=== PATIENT | female | born 1930 | race Caucasian/White ===

== ENCOUNTER 2018-01-23 22:42 | Inpatient (IN) ==
[2018-01-23] MEDS ORDERED: Furosemide 40 MG/4 ML VIAL IVP ONE (23:05)
--- NOTE | 2018-01-23 23:22 | Emergency Department Note ---
Disposition Clinical Impression: Atrial fibrillation with RVR Congestive heart failure Qualifiers: Heart failure type: unspecified Heart failure chronicity: acute on chronic Qualified Code(s): I50.9 - Heart failure, unspecified Disposition: Admitted As Inpatient Condition: Fair Instructions: Heart Failure (ED), Atrial Fibrillation (ED) Referrals: NONE,PCP [Primary Care Provider] - Forms: ED Satisfaction Letter Time of Disposition: 01:40 SOB HPI - General Chief Complaint: ED Shortness of Breath/Dyspnea Stated Complaint: SOB, Leg Cramping, Fluid Retention Time Seen by Provider: 01/23/18 22:51 Source: patient Mode of arrival: private vehicle Limitations: no limitations Nursing Notes Reviewed: Yes Vital Signs Reviewed: Yes - History of Present Illness On his pleasant 87-year-old female. She presents to the emergency room with a chief complaint of increased shortness of breath abdominal and bilateral lower leg swelling starting this morning. She states that in mid November she was seen at [facility] and diagnosed with congestive heart failure and A. fib which really diagnoses for her at the time. She states that she was admitted for several days and released her rehabilitation facility released from the rehabilitation facility on January 21. She is staying locally with family to help her recovery. 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 She is not on dialysis. She denies chest pain states that she does not wear oxygen at home. She denies any missed medication. She is currently taking Lasix 40 mg by mouth daily. She denies fevers, falls, trauma, hits the head, changes in bladder or bowels or any other concerns at this time. Pt Subjective Complaint: shortness of breath Onset (ago): day(s) Context: medication noncompliance Severity: moderate Consistency/Duration: gradually worsening Improves with: nothing Known history of: other (a. fib / CHF) Treatment prior to arrival: nitroglycerin (daily chest patch) - Related Data Home Medications Medication Instructions Recorded Confirmed Apixaban [Eliquis] 5 mg PO BID 01/24/18 01/24/18 Diltiazem HCl [Diltiazem 24Hr Cd] 240 mg PO DAILY 01/24/18 01/24/18 FLUoxetine HCl [Sarafem] 20 mg PO BID 01/24/18 01/24/18 Furosemide [Lasix] 40 mg PO DAILY 01/24/18 01/24/18 Gabapentin [Neurontin] 300 mg PO HS 01/24/18 01/24/18 Iron Polysaccharide Complex 150 mg PO 01/24/18 [Ferric X-150] Multivit-Min/FA/Lycopen/Lutein 1 each PO DAILY 01/24/18 01/24/18 [Centrum Silver Tablet] Nitroglycerin [Nitro-Dur] 1 each TD 01/24/18 01/24/18 Pantoprazole Sodium [Protonix] 40 mg PO DAILY 01/24/18 01/24/18 Potassium Bitartrate [Potassium 01/24/18 Acid Tartrate] Potassium Chloride [Klor-Con 20 meq PO BID 01/24/18 01/24/18 Sprinkle] Spironolactone [Aldactone] 12.5 mg PO DAILY 01/24/18 01/24/18 Allergies Allergy/AdvReac Type Severity Reaction Status Date / Time No Known Allergies Allergy Verified 01/23/18 22:43 All systems ED: reviewed and negative except as stated. Review of Systems: As Per HPI Constitutional: Reports: as per HPI Eyes: Reports: as per HPI Cardiovascular: Reports: as per HPI, orthopnea. Denies: chest pain Respiratory: Reports: dyspnea Gastrointestinal: Reports: abdominal pain (swelling) Integumentary: Denies: rash, abrasion, pruritus Psychiatric: Reports: as per HPI Past Medical History - Past Medical History Medical history: Reports: arthritis, atrial fibrillation, CHF, renal disease Psychiatric history: Reports: anxiety, depression - Social History Smoking Status: Never smoker Alcohol use: Reports: none Drug use: Reports: none Physical Exam - General Limitations: no limitations General appearance: alert - Head Head exam: atraumatic - Eye Eye exam: Present: PERRL, EOMI - Chest Chest inspection: Present: symmetric chest wall rise - Respiratory Respiratory exam: Present: respiratory distress - Cardiovascular Cardiovascular exam: Present: tachycardia, irregular rhythm - Abdominal Exam Abdominal exam: Present: distention - Extremities Exam Extremities exam: Present: tenderness, pedal edema, calf tenderness (bilateral swelling) Course Course Narrative: Patient was started on 40 mg IVP Lasix. She was also given a bolus of diltiazem and started on a diltiazem drip. Patient's rate did bounce around in the ED however primarily was in the 1 teens for most of her stay following the diltiazem drip initiation. I feel the patient needs admission for a reevaluation of medication. Requested records from [place] were patient was admitted. Family at bedside. Vital Signs Temperature 97.8 F 01/23/18 22:43 Pulse Rate 137 01/23/18 22:43 Respiratory Rate 26 01/23/18 22:43 Blood Pressure 139/74 01/23/18 22:43 O2 Sat by Pulse Oximetry 94 01/23/18 22:43 Temperature 97.8 F 01/23/18 22:43 Pulse Rate 125 01/24/18 01:22 Respiratory Rate 20 01/24/18 01:22 Blood Pressure 107/74 01/24/18 01:22 O2 Sat by Pulse Oximetry 95 01/24/18 01:22 Oxygen Delivery Oxygen Delivery Nasal Cannula Shortness of Breath/Dyspnea - MDM Narrative Medical decision making narrative: I suspect troponin is due to cardiac strain from A. fib and congestive heart failure as opposed to a ACS pathology. This patient's first visit at [facility] and we do not have old records for comparison. - Lab Data Lab results reviewed: Yes I reviewed the patient's lab results. Result diagrams: 01/23/18 23:24 01/23/18 23:24 Lab Results 01/23/18 01/23/18 01/23/18 Range/Units 23:24 23:24 23:24 WBC 8.8 (4.3-11.1) K/mcL RBC 2.99 L (3.82-4.97) M/mcL Hgb 7.8 L (11.5-15.4) g/dL Hct 24.6 L (35.3-44.9) % MCV 82.3 L (83.0-100.0) fL MCH 26.1 L (28.0-33.3) pg MCHC 31.7 (31.6-35.5) g/dL RDW 15.8 H (11.5-14.5) % Plt Count 225 (140-400) K/mcL MPV 10.6 (9.4-12.4) fL Immature Gran % 0.5 (0-4) % Seg Neutrophils % 77.8 % Lymphocytes % 7.2 % Monocytes % 14.1 % Eosinophils % 0.3 % Basophils % 0.1 % Neutrophils # 6.8 (1.6-8.9) K/mcL Lymphocytes # 0.6 (0.6-4.6) K/mcL Monocytes # 1.2 (0.0-1.3) K/mcL Eosinophils # 0.0 (0.0-0.6) K/mcL Basophils # 0.0 (0.0-0.2) K/mcL PT 23.3 H (9.4-12.1) Seconds INR 2.1 APTT 40.1 H (26.0-36.0) Seconds Sodium 136 (136-145) mEq/L Potassium 4.7 (3.5-5.1) mEq/L Chloride 104 (98-107) mEq/L Carbon Dioxide 21 L (23-29) mEq/L BUN 42 H (8-23) mg/dL Creatinine 2.18 H (0.60-1.20) mg/dL Est GFR ( Amer) 26 L (> 60) Est GFR (Non-Af Amer) 21 L (> 60) BUN/Creatinine Ratio 19 (6-26) Glucose 150 H (70-105) mg/dL Calculated Osmolality 295 (280-300) Lactic Acid (0.5-2.2) mmol/L Calcium 9.3 (8.6-10.3) mg/dL Total Bilirubin 0.6 (0.3-1.0) mg/dL Direct Bilirubin 0.1 (0.0-0.2) mg/dL Indirect Bilirubin 0.5 (0.0-1.2) mg/dL AST 15 (13-39) Units/L ALT 37 (7-52) Units/L Alkaline Phosphatase 76 (34-104) Units/L Troponin I 0.04 H* (< 0.04) ng/mL B-Natriuretic Peptide (Less than 100) pg/mL Serum Total Protein 6.6 (6.4-8.9) g/dL Albumin 3.8 (3.5-5.7) g/dL Globulin 2.8 (2.4-3.5) g/dL Albumin/Globulin Ratio 1.4 (1.1-2.2) Urine Color (Yellow) Urine Clarity (Clear) Urine pH (5.0-8.0) pH Units Ur Specific [place] (1.010-1.025) Urine Protein (Neg-Trace) mg/dL Urine Glucose (UA) (Normal) mg/dL Urine Ketones (Negative) mg/dL Urine Blood (Negative) Urine Nitrite (Negative) Urine Bilirubin (Negative) Urine Urobilinogen (Normal) mg/dL Ur Leukocyte Esterase (Negative) Urine Microscopic RBC (0-3) per hpf Urine Microscopic WBC (0-3) per hpf Ur Squamous Epith Cells (None-Few) per lpf Urine Bacteria (None-Few) per hpf Hyaline Casts (None-Few) per lpf Ur Culture Indicated? (NO) 01/23/18 01/23/18 01/23/18 Range/Units 23:24 23:24 23:40 WBC (4.3-11.1) K/mcL RBC (3.82-4.97) M/mcL Hgb (11.5-15.4) g/dL Hct (35.3-44.9) % MCV (83.0-100.0) fL MCH (28.0-33.3) pg MCHC (31.6-35.5) g/dL RDW (11.5-14.5) % Plt Count (140-400) K/mcL MPV (9.4-12.4) fL Immature Gran % (0-4) % Seg Neutrophils % % Lymphocytes % % Monocytes % % Eosinophils % % Basophils % % Neutrophils # (1.6-8.9) K/mcL Lymphocytes # (0.6-4.6) K/mcL Monocytes # (0.0-1.3) K/mcL Eosinophils # (0.0-0.6) K/mcL Basophils # (0.0-0.2) K/mcL PT (9.4-12.1) Seconds INR APTT (26.0-36.0) Seconds Sodium (136-145) mEq/L Potassium (3.5-5.1) mEq/L Chloride (98-107) mEq/L Carbon Dioxide (23-29) mEq/L BUN (8-23) mg/dL Creatinine (0.60-1.20) mg/dL Est GFR ( Amer) (> 60) Est GFR (Non-Af Amer) (> 60) BUN/Creatinine Ratio (6-26) Glucose (70-105) mg/dL Calculated Osmolality (280-300) Lactic Acid 0.8 (0.5-2.2) mmol/L Calcium (8.6-10.3) mg/dL Total Bilirubin (0.3-1.0) mg/dL Direct Bilirubin (0.0-0.2) mg/dL Indirect Bilirubin (0.0-1.2) mg/dL AST (13-39) Units/L ALT (7-52) Units/L Alkaline Phosphatase (34-104) Units/L Troponin I (< 0.04) ng/mL B-Natriuretic Peptide 184 H (Less than 100) pg/mL Serum Total Protein (6.4-8.9) g/dL Albumin (3.5-5.7) g/dL Globulin (2.4-3.5) g/dL Albumin/Globulin Ratio (1.1-2.2) Urine Color Yellow (Yellow) Urine Clarity Clear (Clear) Urine pH 5.5 (5.0-8.0) pH Units Ur Specific [place] 1.019 (1.010-1.025) Urine Protein Negative (Neg-Trace) mg/dL Urine Glucose (UA) Normal (Normal) mg/dL Urine Ketones Negative (Negative) mg/dL Urine Blood Negative (Negative) Urine Nitrite Negative (Negative) Urine Bilirubin Negative (Negative) Urine Urobilinogen Normal (Normal) mg/dL Ur Leukocyte Esterase Small H (Negative) Urine Microscopic RBC 3-5 H (0-3) per hpf Urine Microscopic WBC 0-3 (0-3) per hpf Ur Squamous Epith Cells Moderate H (None-Few) per lpf Urine Bacteria None Seen (None-Few) per hpf Hyaline Casts None Seen (None-Few) per lpf Ur Culture Indicated? YES A (NO) - EKG Data EKG results narrative: Ventricular rate of 152. A. fib with RVR. QT/QTc to 76/362. Rate: Reports: tachycardia Critical Care Time Critical Care Time: Yes (Critical care time administered for IV medications of ccb) Total Critical Care Time: 30 Attestation: Rectal care time for IV administration of calcium channel zeenat as well as monitoring patient's vital signs discussing care and disposition with family checking labs discussing care with other physicians including hospitalists and ED attending.
[2018-01-23 23:34] LABS: Basophils % 0.1 %; Eosinophils % 0.3 %; Hematocrit 24.6 % (35.3-44.9); Hemoglobin 7.8 g/dL (11.5-15.4); Immature Granulocytes % 0.5 % (0-4); Lymphocytes # 0.6 K/mcL (0.6-4.6); Lymphocytes % 7.2 %; Mean Corpuscular HGB Conc 31.7 g/dL (31.6-35.5); Mean Corpuscular Hemoglobin 26.1 pg (28.0-33.3); Mean Corpuscular Volume 82.3 fL (83.0-100.0); Mean Platelet Volume 10.6 fL (9.4-12.4); Monocytes # 1.2 K/mcL (0.0-1.3); Monocytes % 14.1 %; Neutrophils # 6.8 K/mcL (1.6-8.9); Platelet Count 225 K/mcL (140-400); Red Blood Count 2.99 M/mcL (3.82-4.97); Red Cell Distribution Width 15.8 % (11.5-14.5); Segmented Neutrophils % 77.8 %
[2018-01-23 23:42] LABS: INR 2.1; Prothrombin Time 23.3 Seconds (9.4-12.1)
[2018-01-23 23:45] LABS: Bilirubin,Urine Negative (Negative); Blood,Urine Negative (Negative); Clarity,Urine Clear (Clear); Color,Urine Yellow (Yellow); Glucose,Urine (UA) Normal (Normal); Ketones,Urine Negative (Negative); Leukocyte Esterase,Urine Small (Negative); Nitrite,Urine Negative (Negative); PH,Urine 5.5 pH Units (5.0-8.0); Protein,Urine Negative (Neg-Trace); Specific Gravity,Urine 1.019 (1.010-1.025); Urobilinogen,Urine Normal (Normal)
[2018-01-23 23:45] LABS: Activated Partial Thrombo Time 40.1 Seconds (26.0-36.0)
[2018-01-23 23:48] LABS: Bacteria,Urine None Seen per hpf (None-Few); Hyaline Casts,Urine None Seen per lpf (None-Few); Squamous Epithelial Cell,Urine Moderate per lpf (None-Few); WBC,Urine 0-3 per hpf (0-3)
[2018-01-23 23:56] LABS: Albumin 3.8 g/dL (3.5-5.7); Albumin/Globulin Ratio 1.4 (1.1-2.2); Bilirubin,Direct 0.1 mg/dL (0.0-0.2); Bilirubin,Indirect 0.5 mg/dL (0.0-1.2); Bilirubin,Total 0.6 mg/dL (0.3-1.0); Calcium 9.3 mg/dL (8.6-10.3); Globulin 2.8 g/dL (2.4-3.5); Potassium 4.7 mEq/L (3.5-5.1); Total Protein 6.6 g/dL (6.4-8.9)
[2018-01-23 23:59] LABS: Troponin I 0.04 ng/mL (< 0.04)
--- NOTE | 2018-01-24 01:31 | Emergency Department Note ---
Disposition Clinical Impression: Atrial fibrillation with RVR Congestive heart failure Qualifiers: Heart failure type: unspecified Heart failure chronicity: acute on chronic Qualified Code(s): I50.9 - Heart failure, unspecified Disposition: Admitted As Inpatient Condition: Fair Instructions: Heart Failure (ED), Atrial Fibrillation (ED) Referrals: NONE,PCP [Primary Care Provider] - Forms: ED Satisfaction Letter General Adult HPI - General Chief complaint: ED Shortness of Breath/Dyspnea Stated complaint: SOB, Leg Cramping, Fluid Retention Time Seen by Provider: 01/23/18 22:51 Source: patient Mode of arrival: private vehicle Limitations: no limitations Nursing Notes Reviewed: Yes Vital Signs Reviewed: Yes - History of Present Illness Pain Scale: 3 - Related Data Home Medications Medication Instructions Recorded Confirmed Apixaban [Eliquis] 5 mg PO BID 01/24/18 01/24/18 Diltiazem HCl [Diltiazem 24Hr Cd] 240 mg PO DAILY 01/24/18 01/24/18 FLUoxetine HCl [Sarafem] 20 mg PO BID 01/24/18 01/24/18 Furosemide [Lasix] 40 mg PO DAILY 01/24/18 01/24/18 Gabapentin [Neurontin] 300 mg PO HS 01/24/18 01/24/18 Iron Polysaccharide Complex 150 mg PO 01/24/18 [Ferric X-150] Multivit-Min/FA/Lycopen/Lutein 1 each PO DAILY 01/24/18 01/24/18 [Centrum Silver Tablet] Nitroglycerin [Nitro-Dur] 1 each TD 01/24/18 01/24/18 Pantoprazole Sodium [Protonix] 40 mg PO DAILY 01/24/18 01/24/18 Potassium Bitartrate [Potassium 01/24/18 Acid Tartrate] Potassium Chloride [Klor-Con 20 meq PO BID 01/24/18 01/24/18 Sprinkle] Spironolactone [Aldactone] 12.5 mg PO DAILY 01/24/18 01/24/18 Allergies Allergy/AdvReac Type Severity Reaction Status Date / Time No Known Allergies Allergy Verified 01/23/18 22:43 Past Medical History - Past Medical History Medical history: Reports: arthritis, atrial fibrillation, CHF, renal disease Psychiatric history: Reports: anxiety, depression - Social History Smoking Status: Never smoker Alcohol use: Reports: none Drug use: Reports: none Physical Exam - General Limitations: no limitations General appearance: alert Course Vital Signs Temperature 97.8 F 01/23/18 22:43 Pulse Rate 137 01/23/18 22:43 Respiratory Rate 26 01/23/18 22:43 Blood Pressure 139/74 01/23/18 22:43 O2 Sat by Pulse Oximetry 94 01/23/18 22:43 Temperature 97.8 F 01/23/18 22:43 Pulse Rate 125 01/24/18 01:22 Respiratory Rate 20 01/24/18 01:22 Blood Pressure 107/74 01/24/18 01:22 O2 Sat by Pulse Oximetry 95 01/24/18 01:22 Oxygen Delivery Oxygen Delivery Nasal Cannula Medical Decision Making - Lab Data Result diagrams: 01/23/18 23:24 01/23/18 23:24 Lab Results 01/23/18 01/23/18 01/23/18 Range/Units 23:24 23:24 23:24 WBC 8.8 (4.3-11.1) K/mcL RBC 2.99 L (3.82-4.97) M/mcL Hgb 7.8 L (11.5-15.4) g/dL Hct 24.6 L (35.3-44.9) % MCV 82.3 L (83.0-100.0) fL MCH 26.1 L (28.0-33.3) pg MCHC 31.7 (31.6-35.5) g/dL RDW 15.8 H (11.5-14.5) % Plt Count 225 (140-400) K/mcL MPV 10.6 (9.4-12.4) fL Immature Gran % 0.5 (0-4) % Seg Neutrophils % 77.8 % Lymphocytes % 7.2 % Monocytes % 14.1 % Eosinophils % 0.3 % Basophils % 0.1 % Neutrophils # 6.8 (1.6-8.9) K/mcL Lymphocytes # 0.6 (0.6-4.6) K/mcL Monocytes # 1.2 (0.0-1.3) K/mcL Eosinophils # 0.0 (0.0-0.6) K/mcL Basophils # 0.0 (0.0-0.2) K/mcL PT 23.3 H (9.4-12.1) Seconds INR 2.1 APTT 40.1 H (26.0-36.0) Seconds Sodium 136 (136-145) mEq/L Potassium 4.7 (3.5-5.1) mEq/L Chloride 104 (98-107) mEq/L Carbon Dioxide 21 L (23-29) mEq/L BUN 42 H (8-23) mg/dL Creatinine 2.18 H (0.60-1.20) mg/dL Est GFR ( Amer) 26 L (> 60) Est GFR (Non-Af Amer) 21 L (> 60) BUN/Creatinine Ratio 19 (6-26) Glucose 150 H (70-105) mg/dL Calculated Osmolality 295 (280-300) Lactic Acid (0.5-2.2) mmol/L Calcium 9.3 (8.6-10.3) mg/dL Total Bilirubin 0.6 (0.3-1.0) mg/dL Direct Bilirubin 0.1 (0.0-0.2) mg/dL Indirect Bilirubin 0.5 (0.0-1.2) mg/dL AST 15 (13-39) Units/L ALT 37 (7-52) Units/L Alkaline Phosphatase 76 (34-104) Units/L Troponin I 0.04 H* (< 0.04) ng/mL B-Natriuretic Peptide (Less than 100) pg/mL Serum Total Protein 6.6 (6.4-8.9) g/dL Albumin 3.8 (3.5-5.7) g/dL Globulin 2.8 (2.4-3.5) g/dL Albumin/Globulin Ratio 1.4 (1.1-2.2) Urine Color (Yellow) Urine Clarity (Clear) Urine pH (5.0-8.0) pH Units Ur Specific [place] (1.010-1.025) Urine Protein (Neg-Trace) mg/dL Urine Glucose (UA) (Normal) mg/dL Urine Ketones (Negative) mg/dL Urine Blood (Negative) Urine Nitrite (Negative) Urine Bilirubin (Negative) Urine Urobilinogen (Normal) mg/dL Ur Leukocyte Esterase (Negative) Urine Microscopic RBC (0-3) per hpf Urine Microscopic WBC (0-3) per hpf Ur Squamous Epith Cells (None-Few) per lpf Urine Bacteria (None-Few) per hpf Hyaline Casts (None-Few) per lpf Ur Culture Indicated? (NO) 01/23/18 01/23/18 01/23/18 Range/Units 23:24 23:24 23:40 WBC (4.3-11.1) K/mcL RBC (3.82-4.97) M/mcL Hgb (11.5-15.4) g/dL Hct (35.3-44.9) % MCV (83.0-100.0) fL MCH (28.0-33.3) pg MCHC (31.6-35.5) g/dL RDW (11.5-14.5) % Plt Count (140-400) K/mcL MPV (9.4-12.4) fL Immature Gran % (0-4) % Seg Neutrophils % % Lymphocytes % % Monocytes % % Eosinophils % % Basophils % % Neutrophils # (1.6-8.9) K/mcL Lymphocytes # (0.6-4.6) K/mcL Monocytes # (0.0-1.3) K/mcL Eosinophils # (0.0-0.6) K/mcL Basophils # (0.0-0.2) K/mcL PT (9.4-12.1) Seconds INR APTT (26.0-36.0) Seconds Sodium (136-145) mEq/L Potassium (3.5-5.1) mEq/L Chloride (98-107) mEq/L Carbon Dioxide (23-29) mEq/L BUN (8-23) mg/dL Creatinine (0.60-1.20) mg/dL Est GFR ( Amer) (> 60) Est GFR (Non-Af Amer) (> 60) BUN/Creatinine Ratio (6-26) Glucose (70-105) mg/dL Calculated Osmolality (280-300) Lactic Acid 0.8 (0.5-2.2) mmol/L Calcium (8.6-10.3) mg/dL Total Bilirubin (0.3-1.0) mg/dL Direct Bilirubin (0.0-0.2) mg/dL Indirect Bilirubin (0.0-1.2) mg/dL AST (13-39) Units/L ALT (7-52) Units/L Alkaline Phosphatase (34-104) Units/L Troponin I (< 0.04) ng/mL B-Natriuretic Peptide 184 H (Less than 100) pg/mL Serum Total Protein (6.4-8.9) g/dL Albumin (3.5-5.7) g/dL Globulin (2.4-3.5) g/dL Albumin/Globulin Ratio (1.1-2.2) Urine Color Yellow (Yellow) Urine Clarity Clear (Clear) Urine pH 5.5 (5.0-8.0) pH Units Ur Specific [place] 1.019 (1.010-1.025) Urine Protein Negative (Neg-Trace) mg/dL Urine Glucose (UA) Normal (Normal) mg/dL Urine Ketones Negative (Negative) mg/dL Urine Blood Negative (Negative) Urine Nitrite Negative (Negative) Urine Bilirubin Negative (Negative) Urine Urobilinogen Normal (Normal) mg/dL Ur Leukocyte Esterase Small H (Negative) Urine Microscopic RBC 3-5 H (0-3) per hpf Urine Microscopic WBC 0-3 (0-3) per hpf Ur Squamous Epith Cells Moderate H (None-Few) per lpf Urine Bacteria None Seen (None-Few) per hpf Hyaline Casts None Seen (None-Few) per lpf Ur Culture Indicated? YES A (NO) Critical Care Time Critical Care Time: Yes Total Critical Care Time: 40 Attestation: Critical care performed: Time is exclusive of separately billable procedures. Time includes: direct patient care, patient reassessment, coordination of patient care, interpretation of data (laboratory data, radiology data, and respiratory data), review of patient's medical records, medical consultation and documentation of patient care. Procedures included in critical care time: Procedures excluded from critical care time: Attestation Statement - Attestation Attestation: I, Ronald Garcia MD, personally evaluated this patient and discussed their management with the midlevel provicer, PAC/[employer]SIST[employer] OF [employer]ION. I reviewed the midlevel provider 's note and agree with the documented findings, medical decision making, and plan of care. 87-year-old female with history of CHF presents to the emergency department with a complaint of increased shortness of breath as well as increased swelling of her abdomen and lower extremities. She denies chest pain. Symptoms started this afternoon and got significantly worse this evening. No chest pain. Patient does have a history of atrial fibrillation and had some palpitations earlier and states she could not feel her heart fluttering but this at present. No cough or fever. On examination patient is a well-developed well-nourished elderly female in no acute distress. She is alert and oriented 3. There is no cyanosis or diaphoresis. Breath sounds are decreased bilaterally with a few bibasilar rales. No wheezes. Heart is irregularly irregular and tachycardic. Abdomen soft and nontender with normal bowel sounds. One plus bilateral pedal edema. EKG shows atrial fibrillation with RVR with a ventricular rate of 152. Chest x- ray shows cardiomegaly with moderate bilateral pleural effusions and mild pulmonary edema. Labs reviewed. Hemoglobin 7.8. Creatinine 2.18. Troponin 0.04. BNP 184.(No prior labs for comparison.) Patient received Cardizem 10 mg IV and was started on Cardizem infusion. She also received IV Lasix. The hospitalist, Dr. Godfrey, was consulted and accepted admission of the patient.
[2018-01-24] MEDS ORDERED: Naloxone 0.4 MG/ML INJ IVP PRN (02:45)
--- NOTE | 2018-01-24 02:45 | Internal Med History&Physical ---
<Jessica Corado - Last Filed: 01/24/18 05:02> Date of Encounter: 01/24/18 Time of Encounter: 02:40 Internal Medicine - H&P: HPI Chief complaint: Shortness of breath Admitted From: Emergency Dept Plans for Post Hospital Care: Home History of present illness: Ms. Wiley is a 87 year old female with past medical history of atrial fibrillation, CHF, CKD presented to [facility] complaining of shortness of breath. She reported that the shortness of breath started this afternoon suddenly and continued to worsen. She uses 2 L of oxygen as needed however today she has worn it all day. She can only walk a few feet and then becomes short of breath. She gets lightheaded and short of breath when not using the oxygen. She also noted her legs have become more swollen with past 2 days. She denies fever, chills, chest pain, abdominal pain, nausea, vomiting, dysuria, melena, hematechezia. Of note, she is from [facility] and her PCP and strategic procurement manager are located there. A month and a half ago she was admitted to [facility] system and diagnosed with new a fib and CHF. She was discharged on Cardizem, eliquis, Lasix, spironolactone to the [facility] for physical [facility] for about a month. She was just released from the prison 01/21/2018 where she came to stay with her son who lives in [place]. Her son noted that she has chronic anemia due to her CKD her hemoglobin is normally around 7.2 to 7.6. She admitted to falling following yesterday when attempting to get from toilet where she fell back against wall and hit her head against the wall. In the ED chest x-ray demonstrated cardiomyopathy, moderate bilateral effusions with mild pulmonary edema. BNP 184, troponin 0.04, creatinine 2.18, INR 2.1, PT 23.3. Spoke with the ED RATTLESNAKE FARMER who agreed to obtain medical records from [facility] about the patient's congestive heart failure, TTE, atrial fibrillation. Also requested that the RATTLESNAKE FARMER order a head CT due to the patient's recent fall. Past Med Surg Social Fam HX - Past Medical History Medical history: arthritis, atrial fibrillation, CHF, renal disease Psychiatric history: anxiety, depression - Past Surgical History Surgical History: other (Cyst removed from kidney) Additional surgical history: Partial Right Kidney Removed - Social History Smoking Status: Never smoker Alcohol use: none Drug use: none Internal Medicine - H&P: Meds Apixaban [Eliquis] 5 mg PO BID 01/24/18 [History] Diltiazem HCl [Diltiazem 24Hr Cd] 240 mg PO DAILY 01/24/18 [History] FLUoxetine HCl [Sarafem] 20 mg PO BID 01/24/18 [History] Furosemide [Lasix] 40 mg PO DAILY 01/24/18 [History] Gabapentin [Neurontin] 300 mg PO HS 01/24/18 [History] Iron Polysaccharide Complex [Ferric X-150] 150 mg PO 01/24/18 [History] Multivit-Min/FA/Lycopen/Lutein [Centrum Silver Tablet] 1 each PO DAILY 01/24/18 [History] Nitroglycerin [Nitro-Dur] 1 each TD 01/24/18 [History] Pantoprazole Sodium [Protonix] 40 mg PO DAILY 01/24/18 [History] Potassium Bitartrate [Potassium Acid Tartrate] 01/24/18 [History] Potassium Chloride [Klor-Con Sprinkle] 20 meq PO BID 01/24/18 [History] Spironolactone [Aldactone] 12.5 mg PO DAILY 01/24/18 [History] 3 Allergy/AdvReac Type Severity Reaction Status Date / Time No Known Allergies Allergy Verified 01/23/18 22:43 All Systems PM: A 10-system review of systems was performed and is negative for pertinent findings except as documented above in the HPI. - Constitutional Constitutional: no chills, no fever(s) - EENT Eyes: no change in vision - Cardiovascular Cardiovascular ROS IM: dyspnea on exertion, edema, lightheadedness, no chest pain, no syncope - Respiratory Respiratory: dyspnea, no cough, no wheezing - Gastrointestinal Gastrointestinal: no abdominal pain, no constipation, no hematemesis, no hematochezia, no melena, no nausea, no vomiting - Genitourinary Genitourinary: no dysuria - Musculoskeletal Musculoskeletal ROS IM: no back pain, no neck pain - Neurological Neurological ROS: no abnormal gait - Psychiatric Psychiatric: no confusion - Hematologic/Lymphatic Hematologic/Lymphatic: easy bruising - Constitutional Vitals: Temp Pulse Resp BP Pulse Ox 97.8 F 125 20 107/74 95 01/23/18 22:43 01/24/18 01:22 01/24/18 01:22 01/24/18 01:22 01/24/18 01:22 General appearance: Present: A&O X 3, pleasant, no acute distress - Head Head exam: Present: atraumatic, normal inspection - Eye Eye exam: Present: normal appearance. Absent: conjunctival injection - Respiratory Respiratory exam: Present: rales (Bilateral bases). Absent: accessory muscle use, rhonchi, wheezes - Cardiovascular Cardiovascular exam: Present: irregular rhythm - GI/Abdominal GI/Abdominal exam: Present: distended, normal bowel sounds, soft. Absent: firm , guarding, tenderness - Expanded Lower Extremities Exam Lower Leg exam: Present: swelling (Bilateral). Absent: erythema, tenderness - Back Exam Back exam: Absent: tenderness - Neurological Exam Neurological exam: Present: alert, oriented X3 - Psychiatric Psychiatric exam: Present: normal affect, normal mood - Skin Skin exam: Present: intact (Ecchymosis above right gluteal crest) Internal Med - H&P Results - Labs CBC & Chem 7: 01/23/18 23:24 01/23/18 23:24 - Assessment and plan (1) Acute exacerbation of congestive heart failure Current Visit: Yes Status: Acute Assessment and plan: Patient likely is an acute exacerbation of congestive heart failure. She was recently diagnosed with CHF month and a half ago while admitted in [facility]. She was discharged to the prison for rehab on Lasix to 60 mg for 5 days and then Lasix 40 mg daily. Today she she suddenly develop shortness of breath that need to worsen. She is using 2L oxygen continuous today where she normally only uses it as needed. She noted lightheadedness, bilateral lower extremity swelling. Chest x-ray demonstrated cardiomegaly, moderate bilateral effusions with mild pulmonary edema. BNP 184 SpO2 92% on 4 L Plan -Lasix IV 40 mg daily -supplemental oxygen -awaiting medical records to know ejection fraction. ED nurse practitioner requested records. -Strict I&O -fluid restriction Qualifiers: Qualified Code(s): I50.9 - Heart failure, unspecified (2) Atrial fibrillation with RVR Current Visit: Yes Status: Acute Assessment and plan: Patient has newly diagnosed atrial fibrillation month and a half ago. She is currently in a fib with RVR. She takes diltiazem and eliquis. EKG demonstrated atrial fibrillation with HR 152, no ST or T wave changes. No ischemia noted. HR 122, BP stable -Continue diltiazem drip -due to CKD and creatinine will give eliquis 2.5mg BID (3) CKD (chronic kidney disease) stage 4, GFR 15-29 ml/min Current Visit: Yes Status: Acute Assessment and plan: History of known CKD. Follows with her strategic procurement manager in [place], [place]. Creatinine 2.18 (baseline unknown) -Monitor creatinine -cautious with Lasix -avoid nephrotoxic agents. (4) Fall Current Visit: Yes Status: Acute Assessment and plan: Patient fell yesterday after attempting to get up from toilet. She fell back slid down wall and hit her head against the wall. She did not lose consciousness. She denied dizziness, confusion, headache. She is on anticoagulation. Examination of head demonstrated no hematoma or tenderness. No neck/ midline, back tenderness. Head CT demonstrated no hemorrhage. Qualifiers: Qualified Code(s): W19.XXXA - Unspecified fall, initial encounter (5) Anemia Current Visit: Yes Status: Acute Assessment and plan: Likely anemia of chronic disease in setting of CKD. Some reports patient's hemoglobin is normally 7.2 to 7.6. Patient denies melena, hematechezia. Hemoglobin 7.8, MCV 82.3 -Will order Iron studies -monitor for blood loss -monitor H&H Qualifiers: Qualified Code(s): D64.9 - Anemia, unspecified (6) DVT prophylaxis Current Visit: Yes Status: Acute Assessment and plan: on eliquis (7) Elevated troponin Current Visit: Yes Status: Acute Assessment and plan: troponin 0.04 likely due to CHF and demand ischemia in setting of CKD. Patient is chest pain free. EKG A.fib, no ST or T wave changes no ischemia. -repeat troponin. - Time Spent With Patient Total time spent is greater than 50% in coordination of care (as documented) at patient's floor/unit and/or counseling patient: 25 - 35 minutes <Aldo Godfrey - Last Filed: 01/24/18 06:56> Date of Encounter: 01/24/18 Internal Medicine - H&P: HPI History of present illness: Ms. Wiley is a 87 year old female All Systems PM: A 10-system review of systems was performed and is negative for pertinent findings except as documented above in the HPI. - Constitutional Vitals: Temp Pulse Resp BP Pulse Ox 98.2 F 128 20 121/92 96 01/24/18 03:42 01/24/18 06:15 01/24/18 03:42 01/24/18 06:15 01/24/18 03:42 Internal Med - H&P Results - Labs CBC & Chem 7: 01/24/18 04:41 01/24/18 04:41 Labs: Short CBC 01/24/18 Range/Units 04:41 WBC 7.6 (4.3-11.1) K/mcL Hgb 7.4 L (11.5-15.4) g/dL Hct 23.3 L (35.3-44.9) % Plt Count 218 (140-400) K/mcL Neutrophils # 5.9 (1.6-8.9) K/mcL BMP 01/24/18 04:41 Sodium 138 Potassium 4.4 Chloride 104 Carbon Dioxide 23 BUN 44 H Creatinine 2.23 H Glucose 135 H Calcium 9.2 Cardiac Enzymes 01/24/18 Range/Units 04:41 Troponin I 0.04 H* (< 0.04) ng/mL - Impressions ITS Impressions Head CT 01/24/18 03:08 IMPRESSION: No acute intracranial abnormality. Chronic arachnoid cyst overlying left frontotemporal region has resulted in remodeling of the overlying calvarium. D/ / Yung Mcgee / Yung Mcgee Interpreting Provider: Yung Mcgee - Attending Attestation I have seen and examined this patient independently. I have discussed with Resident physician Dr Corado regarding the management plan. Agree with the documentation. - Assessment and plan (1) Atrial fibrillation with RVR Current Visit: Yes Status: Acute (2) Acute exacerbation of congestive heart failure Current Visit: Yes Status: Acute Qualifiers: Qualified Code(s): I50.9 - Heart failure, unspecified (3) DVT prophylaxis Current Visit: Yes Status: Acute (4) CKD (chronic kidney disease) stage 4, GFR 15-29 ml/min Current Visit: Yes Status: Acute (5) Anemia Current Visit: Yes Status: Acute Qualifiers: Qualified Code(s): D64.9 - Anemia, unspecified (6) Fall Current Visit: Yes Status: Acute Qualifiers: Qualified Code(s): W19.XXXA - Unspecified fall, initial encounter (7) Elevated troponin Current Visit: Yes Status: Acute - Time Spent With Patient Total time spent is greater than 50% in coordination of care (as documented) at patient's floor/unit and/or counseling patient:
[2018-01-24 05:14] LABS: Basophils % 0.1 %; Eosinophils % 0.4 %; Hematocrit 23.3 % (35.3-44.9); Hemoglobin 7.4 g/dL (11.5-15.4); Immature Granulocytes % 0.3 % (0-4); Lymphocytes # 0.6 K/mcL (0.6-4.6); Lymphocytes % 7.2 %; Mean Corpuscular HGB Conc 31.8 g/dL (31.6-35.5); Mean Corpuscular Hemoglobin 26.1 pg (28.0-33.3); Mean Platelet Volume 10.5 fL (9.4-12.4); Monocytes # 1.1 K/mcL (0.0-1.3); Neutrophils # 5.9 K/mcL (1.6-8.9); Platelet Count 218 K/mcL (140-400); Red Blood Count 2.84 M/mcL (3.82-4.97); Red Cell Distribution Width 15.7 % (11.5-14.5)
[2018-01-24 05:37] LABS: BUN/Creatinine Ratio 20 (6-26); Blood Urea Nitrogen 44 mg/dL (8-23); Calcium 9.2 mg/dL (8.6-10.3); Carbon Dioxide 23 mEq/L (23-29); Chloride 104 mEq/L (98-107); Glucose 135 mg/dL (70-105); Iron < 10 mcg/dL (50-170); Osmolality,Calculated 299 (280-300); Potassium 4.4 mEq/L (3.5-5.1); Sodium 138 mEq/L (136-145); Transferrin 254 mg/dL (203-362); Troponin I 0.04 ng/mL (< 0.04); eGFR For African Americans 25 (> 60); eGFR For Non-African Americans 21 (> 60)
--- NOTE | 2018-01-24 07:56 | Event Note ---
<Mini Penalozaler A - Last Filed: 01/24/18 17:30> Date of Encounter: 01/24/18 Time of Encounter: 09:02 Ms. Wiley is an 87-year-old female, with a history of atrial fibrillation, CHF and CKD, who was admitted for shortness of breath and dyspnea. During this encounter the patient was laying in bed in minor distress. Still complaining of shortness of breath, but stated it has improved slightly. Patient also states she still feels very "swollen" and warm. The patient is noted to be afebrile at this time. Patient complains of some chest tightness, but denies any chest pain. Also denies any abdominal pain, nausea, vomiting, or diarrhea. Physical exam Head: Normocephalic and atraumatic Eyes: PERRL, EOMI, conjunctivae pink, sclerae anicteric Heart: Irregular rhythm, no clicks or rubs noted Lungs: Clear to auscultation bilaterally, labored breathing with accessory muscle use. No wheezes, rales, or rhonchi. GI: Abdomen soft, slightly distended, nontender, normoactive bowel sounds. Extremities: Warm, pulses palpable and symmetrical. +1 pitting edema. No cyanosis noted. Neuro: Alert and oriented 3, no focal deficits, no speech difficulty. Skin: Warm, dry, intact. A/P A-fib with RVR -Cardizem currently at rate of 15, or as tolerated by pt and pt's BP -Refractory to cardizem rate of 20 and trial of Lopressor 5 -Consult Cardio -Pt request to wait to talk to skin diving teacher prior to trying Amiodarone CHF -fluid restriction -strict I&Os <Ariel Nolan A - Last Filed: 01/24/18 17:43> Date of Encounter: 01/24/18 Ms Wiley was admitted earlier this AM with rapid a fib and CHF. She remains on cardizem drip and heart rate has been high. Son wants to talk about ablation. Exam Alert Comfortable Heart irreg and tachy No wheeze Agree with plan as above.
[2018-01-24] MEDS: Apixaban 5 MG TABLET PO SCH ×2 (08:45→20:44)
[2018-01-24] MEDS: Furosemide 40 MG/4 ML VIAL IVP SCH (08:45)
[2018-01-24] MEDS: *HR* Metoprolol 5 MG/5 ML VIAL IVP SCH ×2 (09:30→18:42)
[2018-01-25] MEDS: *HR* LORazepam 1 MG TABLET PO PRN ×2 (01:45→20:42)
[2018-01-25 05:19] LABS: Basophils % 0.1 %; Eosinophils % 0.1 %; Hematocrit 24.4 % (35.3-44.9); Hemoglobin 7.5 g/dL (11.5-15.4); Immature Granulocytes % 0.5 % (0-4); Lymphocytes # 0.6 K/mcL (0.6-4.6); Lymphocytes % 6.8 %; Mean Corpuscular HGB Conc 30.7 g/dL (31.6-35.5); Mean Corpuscular Volume 81.3 fL (83.0-100.0); Mean Platelet Volume 11.1 fL (9.4-12.4); Monocytes # 1.1 K/mcL (0.0-1.3); Monocytes % 12.3 %; Platelet Count 270 K/mcL (140-400); Red Cell Distribution Width 16.1 % (11.5-14.5); Segmented Neutrophils % 80.2 %
[2018-01-25 05:43] LABS: Albumin 3.8 g/dL (3.5-5.7); Albumin/Globulin Ratio 1.4 (1.1-2.2); Bilirubin,Total 0.5 mg/dL (0.3-1.0); Calcium 9.5 mg/dL (8.6-10.3); Globulin 2.7 g/dL (2.4-3.5); Potassium 4.8 mEq/L (3.5-5.1); Total Protein 6.5 g/dL (6.4-8.9)
--- NOTE | 2018-01-25 08:15 | Internal Med Progress Note ---
<Sonido Penaloza - Last Filed: 01/25/18 16:28> Date of Encounter: 01/25/18 Time of Encounter: 08:15 - Assessment and plan (1) Atrial fibrillation with RVR Current Visit: Yes Status: Acute Assessment and plan: Appreciated cardio consultation Per cardio will start Amiodarone 400mg BID for 3 days. Followed by 200mg BID for one month. (2) Acute exacerbation of congestive heart failure Current Visit: Yes Status: Acute Assessment and plan: SOB improved Likely exacerbated by the Afib with RVR Continue fluid restriction Strict I&Os Qualifiers: Heart failure type: diastolic Qualified Code(s): I50.33 - Acute on chronic diastolic (congestive) heart failure (3) CKD (chronic kidney disease) stage 4, GFR 15-29 ml/min Current Visit: Yes Status: Acute Assessment and plan: Kidney functions trending upward Records from [place] from 12/24 and 12/25 revealed Creatinine 2.0 and 1.9, which may be closer to pt baseline d/c lasix as tolerated by pt continue to monitor kidney functions (4) Anemia Current Visit: Yes Status: Acute Assessment and plan: Iron studies revealed low iron levels, but normal transferrin. Likely due to CKD Qualifiers: Anemia type: due to chronic kidney disease Chronic kidney disease stage: stage 4 (severe) Qualified Code(s): N18.4 - Chronic kidney disease, stage 4 ( severe); D63.1 - Anemia in chronic kidney disease (5) DVT prophylaxis Current Visit: Yes Status: Acute (6) Elevated troponin Current Visit: Yes Status: Acute Assessment and plan: trend of troponins stable at 0.04 likely demand ischemia from afib with rvr - Time Spent With Patient Total time spent is greater than 50% in coordination of care (as documented) at patient's floor/unit and/or counseling patient: - Subjective Interval history: Ms. Wiley is an 87-year-old female, with a history of atrial fibrillation, CHF and CKD, who was admitted for shortness of breath and dyspnea. 01/24: During this encounter the patient was laying in bed in minor distress. Still complaining of shortness of breath, but stated it has improved slightly. Patient also states she still feels very "swollen" and warm. The patient is noted to be afebrile at this time. Patient complains of some chest tightness, but denies any chest pain. Also denies any abdominal pain, nausea, vomiting, or diarrhea. 01/25: Pt had an episode of SOB last night, but improved after receiving her home [facility]. Pt sitting comfortably on the side of bed this AM eating breakfast. States she feels much better today compared to yesterday, and the chest tightness has improved, with no difficulty breathing. Denies any chest pain, abdominal pain, nausea, vomiting, or diarrhea. - Constitutional Vitals: Temp Pulse Resp BP Pulse Ox 97.5 F L 108 20 103/87 99 01/25/18 07:11 01/25/18 07:11 01/25/18 07:11 01/25/18 07:11 01/25/18 07:11 General appearance: Present: A&O X 3, pleasant, no acute distress Exam: Head: Normocephalic and atraumatic Eyes: PERRL, EOMI, conjunctivae pink, sclerae anicteric Heart: Irregular rhythm, no clicks or rubs noted Lungs: Clear to auscultation bilaterally, slightly diminished breath sounds, unlabored breathing. No wheezes, rales, or rhonchi. GI: Abdomen soft, non-distended, nontender, normoactive bowel sounds. : Gottlieb catheter noted with orange urine in tube and bag Extremities: Warm, pulses palpable and symmetrical. +1 pitting edema. No cyanosis noted. Neuro: Alert and oriented 3, no focal deficits, no speech difficulty. Skin: Warm, dry, intact. Internal Medicine: Result - Labs CBC & Chem 7: 01/25/18 03:41 01/25/18 03:41 Labs: Short CBC 01/25/18 Range/Units 03:41 WBC 8.7 (4.3-11.1) K/mcL Hgb 7.5 L (11.5-15.4) g/dL Hct 24.4 L (35.3-44.9) % Plt Count 270 (140-400) K/mcL Neutrophils # 7.0 (1.6-8.9) K/mcL BMP 01/25/18 03:41 Sodium 136 Potassium 4.8 Chloride 104 Carbon Dioxide 21 L BUN 51 H Creatinine 2.55 H Glucose 148 H Calcium 9.5 Cardiac Enzymes 01/24/18 Range/Units 10:56 Troponin I 0.04 H* (< 0.04) ng/mL Liver Function 01/25/18 Range/Units 03:41 Total Bilirubin 0.5 (0.3-1.0) mg/dL AST 22 (13-39) Units/L ALT 47 (7-52) Units/L Alkaline Phosphatase 87 (34-104) Units/L Albumin 3.8 (3.5-5.7) g/dL - ABG Interpretation ABG results: PT/INR, D-dimer PT 23.3 Seconds (9.4-12.1) H 01/23/18 23:24 Consult Discharge Plan - Plan Referrals: NONE,PCP [Primary Care Provider] - <Ariel Nolan - Last Filed: 01/25/18 18:43> Date of Encounter: 01/25/18 - Assessment and plan (1) Acute exacerbation of congestive heart failure Current Visit: Yes Status: Acute Qualifiers: Heart failure type: diastolic Qualified Code(s): I50.33 - Acute on chronic diastolic (congestive) heart failure (2) Atrial fibrillation Current Visit: Yes Status: Chronic Qualifiers: Atrial fibrillation type: chronic Qualified Code(s): I48.2 - Chronic atrial fibrillation (3) Atrial fibrillation with RVR Current Visit: Yes Status: Acute (4) DVT prophylaxis Current Visit: Yes Status: Acute (5) CKD (chronic kidney disease) stage 4, GFR 15-29 ml/min Current Visit: Yes Status: Acute (6) Anemia Current Visit: Yes Status: Acute Qualifiers: Anemia type: due to chronic kidney disease Chronic kidney disease stage: stage 4 (severe) Qualified Code(s): N18.4 - Chronic kidney disease, stage 4 ( severe); D63.1 - Anemia in chronic kidney disease (7) Elevated troponin Current Visit: Yes Status: Acute - Time Spent With Patient Total time spent is greater than 50% in coordination of care (as documented) at patient's floor/unit and/or counseling patient: - Constitutional Vitals: Temp Pulse Resp BP Pulse Ox 97.6 F 102 16 108/69 93 01/25/18 16:21 01/25/18 16:21 01/25/18 16:21 01/25/18 16:21 01/25/18 16:21 Internal Medicine: Result - Labs CBC & Chem 7: 01/25/18 03:41 01/25/18 03:41 Labs: Short CBC 01/25/18 Range/Units 03:41 WBC 8.7 (4.3-11.1) K/mcL Hgb 7.5 L (11.5-15.4) g/dL Hct 24.4 L (35.3-44.9) % Plt Count 270 (140-400) K/mcL Neutrophils # 7.0 (1.6-8.9) K/mcL BMP 01/25/18 03:41 Sodium 136 Potassium 4.8 Chloride 104 Carbon Dioxide 21 L BUN 51 H Creatinine 2.55 H Glucose 148 H Calcium 9.5 Liver Function 01/25/18 Range/Units 03:41 Total Bilirubin 0.5 (0.3-1.0) mg/dL AST 22 (13-39) Units/L ALT 47 (7-52) Units/L Alkaline Phosphatase 87 (34-104) Units/L Albumin 3.8 (3.5-5.7) g/dL - ABG Interpretation ABG results: PT/INR, D-dimer PT 23.3 Seconds (9.4-12.1) H 01/23/18 23:24 - Attending Attestation I examined this patient and my medical decision-making was reviewed with the Resident Physician on 01/25/18. I agree with the documented findings, disposition and treatment plan as described except to the extent set forth below. Ms Wiley is currently in observation for acute rapid a fib and CHF. She remains moderate to high risk at this time. Ms Wiley is resting comfortably at this time. Appreciate cardiology input. No CP at this time. No fever or chills. Exam alert Comfortable at this time Mucus membranes dry Heart irreg Diminished breath sounds Abd soft I/P 1. Rapid a fib 2. CHF Further diagnoses and plan as above.
[2018-01-25] MEDS: Apixaban 5 MG TABLET PO SCH ×2 (08:17→20:42)
--- NOTE | 2018-01-25 10:29 | Cardiology Consult Note ---
<Lupis Gasca - Last Filed: 01/25/18 11:42> Date of Encounter: 01/25/18 Time of Encounter: 08:30 Assessment and Plan (1) Atrial fibrillation with RVR Current Visit: Yes Status: Acute Per cardiology: -States was recently diagnosed with a.fib in November, has been on cardizem CD 240mg. -On eliquis 2.5mg BID for anticoagulation. -Average HR previous 12 hours noted to be 105, a.fib. -Currently on cardizem drip at 12.5mg/hour. -TTE from [place] 11/2017 reviewed with LVEF 60%, indeterminate diastolic function, moderate MR, moderate TR, mild PH, no segmental wall motion abnormalities noted. -Discussed and reviewed with Dr.John Santiago, will start amiodarone 400mg BID. Recommend 400mg BID for 3 days, then 200mg BID for one month. -Can consider outpatient DCCV if able to be rate controlled. (2) CKD (chronic kidney disease) stage 4, GFR 15-29 ml/min Current Visit: Yes Status: Acute Per cardiology: -Creatinine today 2.55. -Labs reviewed from [facility] 11/2017 with creatinine 2. -Management per primary service. (3) Anemia Current Visit: Yes Status: Acute Per cardiology: -Hemoglobin today 7.5. -Denies active bleeding or blood loss. -On eliquis 2.5mg BID for anticoagulation. -Management per primary service. Qualifiers: Anemia type: unspecified type Qualified Code(s): D64.9 - Anemia, unspecified (4) Congestive heart failure Current Visit: Yes Status: Chronic Per cardiology: -Known diastolic CHF. -Reports increased shortness of breath on admission, states at baseline today. -Chest x-ray with bilateral pleural effusions, mild increase in pulmonary vasculature. -BNP 100s. -On IV lasix. Has net positive fluid balance of 221ml. -Lower extremity edema noted, states baseline since November. -TTE as above with LVEF preserved. -Strict i/os, daily weights, fluid restriction. Qualifiers: Heart failure type: diastolic Heart failure chronicity: chronic Qualified Code(s): I50.32 - Chronic diastolic (congestive) heart failure (5) Elevated troponin Current Visit: Yes Status: Acute Per cardiology: -Troponins 0.04 x3 in the setting of CKD, anemia, a.fib RVR. -Denies chest pain. -ECG with no acute ischemic changes. -Recent TTE as above with LVEF 60%, no segmental wall motion abnormalities. -DO not suspect NSTEMI, suspect demand ischemia related to above. NO cardiac rehab consult warranted. Discussion w patient/family: The assessment and plan as outlined above was discussed with the patient who expressed understanding and agreement. All questions were answered. Thank you for involving us in the care of your patient. Please call with any questions. Discussed and reviewed with Dr.John Santiago. History of Present Illness Consult date: 01/24/18 Requesting physician: Sonido Penaloza Consult reason: a.fib RVR Chief complaint: shortness of breath History of present illness: Ms. Wiley is a 87 year old female with a relevant past medical history of CHF , atrial fibrillation, CKD, anxiety, depression who presented to [facility] with complaints of increased shortness of breath. Patient states was diagnosed with CHF and a.fib in November at outside facility. Patient states she has noticed progressive worsening of shortness of breath since November. Denies chest pain. Denies palpitations or fluttering. Denies active bleeding or blood loss. Patient reports lower extremity edema since November, states has been constant. Past Med Surg Social Fam HX - Past Medical History Attestation: Yes The following information was validated with the patient. Source: patient, old records reviewed Medical history: arthritis, atrial fibrillation, CHF, renal disease Psychiatric history: anxiety, depression - Past Surgical History Surgical History: other (Cyst removed from kidney) Additional surgical history: Partial Right Kidney Removed - Social History Smoking Status: Never smoker Alcohol use: none Drug use: none Medications and Allergies Apixaban [Eliquis] 5 mg PO BID 01/24/18 [History] Diltiazem HCl [Diltiazem 24Hr Cd] 240 mg PO DAILY 01/24/18 [History] FLUoxetine HCl [Sarafem] 20 mg PO BID 01/24/18 [History] Furosemide [Lasix] 40 mg PO DAILY 01/24/18 [History] Gabapentin [Neurontin] 300 mg PO HS 01/24/18 [History] Iron Polysaccharide Complex [Ferric X-150] 150 mg PO DAILY 01/24/18 [History] Multivit-Min/FA/Lycopen/Lutein [Centrum Silver Tablet] 1 each PO DAILY 01/24/18 [History] Nitroglycerin [Nitro-Dur] 1 patch TD 0800 01/24/18 [History] Pantoprazole Sodium [Protonix] 40 mg PO DAILY 01/24/18 [History] Potassium Chloride [Klor-Con Sprinkle] 20 meq PO BID 01/24/18 [History] Spironolactone [Aldactone] 12.5 mg PO DAILY 01/24/18 [History] LORazepam [Ativan] 1 mg PO HS 01/25/18 [History] 3 Allergy/AdvReac Type Severity Reaction Status Date / Time No Known Allergies Allergy Verified 01/25/18 08:26 All Systems Review: The remainder of the systems were reviewed and are negative - Cardiovascular Cardiovascular: as per HPI, dyspnea on exertion, leg edema Physical Examination Vital Signs, Last 4 Hours Temp Pulse Resp BP Pulse Ox 01/25/18 07:11 97.5 F L 108 20 103/87 99 General: Conversant, No Apparent Distress HEENT: Atraumatic, Normocephaly, Mucus Membranes Moist Neck: No JVD, Normal carotid pulses Cardiac: Normal S1 and S2, No Murmur, Other (Irregularly irregular ) Lungs: Other (Lung sounds diminished to bilateral lower lobes. ) Neuro: Alert and responsive, No focal deficits noted Abdomen: Soft, Non-Tender Skin: No rashes noted on visualized skin Musculoskeletal: No Chest Wall Tenderness Extremities: No Clubbing, No Cyanosis, Normal Pulses, Other (Mild lower extremity pedal edema. ) Results 01/25/18 03:41 01/25/18 03:41 Lab Results Active Medications Apixaban (Eliquis) 2.5 mg PO BID CECILLE Stop: 07/26/18 09:01 Last Admin: 01/25/18 08:17 Dose: 2.5 mg Furosemide (Lasix) 40 mg IVP DAILY C[place] Stop: 07/26/18 09:01 Last Admin: 01/25/18 11:00 Dose: Not Given Diltiazem HCl 50 mg/ Sodium (Chloride) 50 mls @ 5 mls/hr IVC .Q10H CECILLE; 5 MG/HR PRN Reason: Protocol Stop: 07/25/18 23:16 Last Titration: 01/25/18 09:23 Dose: 12.5 mg/hr, 12.5 mls/hr Lorazepam (Ativan) 1 mg PO HS PRN PRN Reason: Insomnia Stop: 07/26/18 16:36 Last Admin: 01/25/18 01:45 Dose: 1 mg Metoprolol Tartrate (Lopressor) 5 mg IVP Q5MIN [place] Stop: 01/26/18 09:01 Last Admin: 01/24/18 18:42 Dose: 5 mg Naloxone HCl (Narcan) 0.4 mg IVP Q2MIN PRN PRN Reason: SEE COMMENTS Stop: 07/26/18 02:46 Laboratory Tests 01/23/18 01/23/18 01/23/18 23:24 23:24 23:24 Hgb 7.8 L Potassium Creatinine 2.18 H Troponin I 0.04 H* B-Natriuretic Peptide 184 H 01/24/18 01/24/18 01/25/18 04:41 10:56 03:41 Hgb 7.5 L Potassium Creatinine Troponin I 0.04 H* 0.04 H* B-Natriuretic Peptide 01/25/18 03:41 Hgb Potassium 4.8 Creatinine 2.55 H Troponin I B-Natriuretic Peptide - Imaging and Cardiology Chest Xray: report reviewed Echo: report reviewed - EKG Interpretation EKG results cardiology: personally reviewed (ECG with a.fib RVR, HR 152.), other (Telemetry reviewed with average HR previous 12 hours noted to be 105, a.fib. PVCs noted.) Consult Discharge Plan - Plan Referrals: NONE,PCP [Primary Care Provider] - <Norm Santiago - Last Filed: 01/25/18 12:32> Date of Encounter: 01/25/18 - Attending Attestation I have personally performed a face to face evaluation on this patient. I have reviewed and agree with the care plan. History and Exam by me shows: AF of unknown duration. Has been rate controlled ananticoagulated for past several weeks although rate control has been suboptimal. Presented at this time with dyspnea and LE edema. At this point would attempt rhythm control strategy with amio and eventual cardioversion. Assessment and Plan Discussion w patient/family: The assessment and plan as outlined above was discussed with the patient and/or family members who expressed understanding and agreement. All questions were answered. Thank you for involving us in the care of your patient. Please call with any questions. History of Present Illness History of present illness: Ms. Wiley is a 87 year old female All Systems Review: The remainder of the systems were reviewed and are negative Physical Examination Vital Signs, Last 4 Hours Temp Pulse Resp BP Pulse Ox 01/25/18 10:47 97.6 F 99 21 113/82 92 Results 01/25/18 03:41 01/25/18 03:41 Lab Results 01/25/18 01/25/18 03:41 03:41 WBC 8.7 Hgb 7.5 L Hct 24.4 L Plt Count 270 Sodium 136 Potassium 4.8 Chloride 104 Carbon Dioxide 21 L BUN 51 H Creatinine 2.55 H Glucose 148 H Calcium 9.5 Total Bilirubin 0.5 AST 22 ALT 47 Alkaline Phosphatase 87
[2018-01-25] MEDS: Furosemide 40 MG/4 ML VIAL IVP SCH (11:00)
[2018-01-25] MEDS: *HR* Amiodarone 200 MG TABLET PO SCH ×2 (12:28→20:41)
[2018-01-25] MEDS: Gabapentin 300 MG CAPSULE PO SCH (20:41)
[2018-01-25] MEDS: FLUoxetine 20 MG CAPSULE PO SCH (20:42)
[2018-01-26 04:24] LABS: Calcium 9.2 mg/dL (8.6-10.3); Potassium 4.7 mEq/L (3.5-5.1)
--- NOTE | 2018-01-26 08:17 | Electrocardiograph Report ---
[address] [place], [place] [address] Test Date: 2018-01-23 Pat Name: Judy Wiley Department: 104 Room: [facility] Gender: F [employer] Gate: : 1930 Requested By: Manju Diaz Order Number: [id number] Reading MD: Froylan Sanders Measurements Intervals [place] Rate: 152 P: IA: 0 QRS: 44 QRSD: 95 T: -60 QT: 276 QTc: 362 Interpretive Statements ATRIAL FIBRILLATION WITH RAPID VENTRICULAR RESPONSE Electronically Signed On 01-26-2018 8:16:16 EDT by Froylan Sanders
[2018-01-26] MEDS: FLUoxetine 20 MG CAPSULE PO SCH ×2 (08:20→20:55)
[2018-01-26] MEDS: Iron Polysaccharide Complex 150 MG CAPSULE PO SCH (08:20)
[2018-01-26] MEDS: Apixaban 5 MG TABLET PO SCH ×2 (08:20→20:55)
[2018-01-26] MEDS: Multivit/Ca/Min/Fe/FA 1 TAB TABLET PO SCH (08:20)
[2018-01-26] MEDS: Nitroglycerin 0.2 MG PATCH.TD24 TD SCH (08:21)
[2018-01-26] MEDS: *HR* Amiodarone 200 MG TABLET PO SCH ×2 (08:22→20:55)
--- NOTE | 2018-01-26 09:49 | Internal Med Progress Note ---
<Sonido Penaloza - Last Filed: 01/26/18 15:48> Date of Encounter: 01/26/18 Time of Encounter: 08:45 - Assessment and plan (1) Atrial fibrillation with RVR Current Visit: Yes Status: Acute Assessment and plan: Appreciate cardio consultation Amiodarone 400mg BID for day 2 of 3. Followed by 200mg BID for one month. Continue to titrate Cardizem drip for HR <100 as tolerated by BP (2) CKD (chronic kidney disease) stage 4, GFR 15-29 ml/min Current Visit: Yes Status: Acute Assessment and plan: Kidney functions still high at Cr. 2.49 Records from [place] from 12/24 and 12/25 revealed Creatinine 2.0 and 1.9, which may be closer to pt baseline d/c lasix as tolerated by pt continue to monitor kidney functions (3) Acute exacerbation of congestive heart failure Current Visit: Yes Status: Acute Assessment and plan: SOB improved Likely exacerbated by the Afib with RVR Continue fluid restriction Strict I&Os Fluid +100mL today, but holding diuresis for worsening kidney functions Qualifiers: Heart failure type: diastolic Qualified Code(s): I50.33 - Acute on chronic diastolic (congestive) heart failure (4) Anemia Current Visit: Yes Status: Acute Assessment and plan: Iron studies revealed low iron levels, but normal transferrin. Likely due to CKD Qualifiers: Anemia type: due to chronic kidney disease Chronic kidney disease stage: stage 4 (severe) Qualified Code(s): N18.4 - Chronic kidney disease, stage 4 ( severe); D63.1 - Anemia in chronic kidney disease (5) Elevated troponin Current Visit: Yes Status: Acute Assessment and plan: likely demand ischemia from afib with rvr (6) DVT prophylaxis Current Visit: Yes Status: Acute (7) Atrial fibrillation Current Visit: Yes Status: Chronic Qualifiers: Atrial fibrillation type: chronic Qualified Code(s): I48.2 - Chronic atrial fibrillation - Time Spent With Patient Total time spent is greater than 50% in coordination of care (as documented) at patient's floor/unit and/or counseling patient: - Subjective Interval history: Ms. Wiley is an 87-year-old female, with a history of atrial fibrillation, CHF and CKD, who was admitted for shortness of breath and dyspnea. 01/24: During this encounter the patient was laying in bed in minor distress. Still complaining of shortness of breath, but stated it has improved slightly. Patient also states she still feels very "swollen" and warm. The patient is noted to be afebrile at this time. Patient complains of some chest tightness, but denies any chest pain. Also denies any abdominal pain, nausea, vomiting, or diarrhea. 01/25: Pt had an episode of SOB last night, but improved after receiving her home [facility]. Pt sitting comfortably on the side of bed this AM eating breakfast. States she feels much better today compared to yesterday, and the chest tightness has improved, with no difficulty breathing. Denies any chest pain, abdominal pain, nausea, vomiting, or diarrhea. 01/26: No acute events overnight. Pt sitting comfortably in bed with no new complaints. Pt states she only feels SOB when she lays flat or if she gets up to walk. Able to speak in full sentences. Denies any chest pain, abdominal pain , nausea, vomiting, or diarrhea. - Constitutional Vitals: Temp Pulse Resp BP Pulse Ox 97.8 F 113 24 107/90 91 01/26/18 07:07 01/26/18 07:07 01/26/18 07:07 01/26/18 07:07 01/26/18 07:07 General appearance: Present: A&O X 3, pleasant, no acute distress Exam: Head: Normocephalic and atraumatic Eyes: PERRL, EOMI, conjunctivae pink, sclerae anicteric Heart: Irregular rhythm, no clicks or rubs noted Lungs: Fine wheezes noted in upper lobes, slightly diminished breath sounds, unlabored breathing. No rales, or rhonchi. GI: Abdomen soft, non-distended, nontender, normoactive bowel sounds. : Gottlieb catheter noted with orange urine in tube and bag Extremities: Warm, pulses palpable and symmetrical. +1 pitting edema. No cyanosis noted. Neuro: Alert and oriented 3, no focal deficits, no speech difficulty. Skin: Warm, dry, intact. Internal Medicine: Result - Labs CBC & Chem 7: 01/25/18 03:41 01/26/18 03:43 Labs: BMP 01/26/18 03:43 Sodium 134 L Potassium 4.7 Chloride 102 Carbon Dioxide 22 L BUN 56 H Creatinine 2.49 H Glucose 154 H Calcium 9.2 - ABG Interpretation ABG results: PT/INR, D-dimer PT 23.3 Seconds (9.4-12.1) H 01/23/18 23:24 Consult Discharge Plan - Plan Referrals: NONE,PCP [Primary Care Provider] - <Ariel Nolan - Last Filed: 01/26/18 18:08> Date of Encounter: 01/26/18 - Assessment and plan (1) Atrial fibrillation with RVR Current Visit: Yes Status: Acute (2) Acute exacerbation of congestive heart failure Current Visit: Yes Status: Acute Qualifiers: Heart failure type: diastolic Qualified Code(s): I50.33 - Acute on chronic diastolic (congestive) heart failure (3) DVT prophylaxis Current Visit: Yes Status: Acute (4) CKD (chronic kidney disease) stage 4, GFR 15-29 ml/min Current Visit: Yes Status: Acute (5) Anemia Current Visit: Yes Status: Acute Qualifiers: Anemia type: due to chronic kidney disease Chronic kidney disease stage: stage 4 (severe) Qualified Code(s): N18.4 - Chronic kidney disease, stage 4 ( severe); D63.1 - Anemia in chronic kidney disease (6) Elevated troponin Current Visit: Yes Status: Acute (7) Atrial fibrillation Current Visit: Yes Status: Chronic Qualifiers: Atrial fibrillation type: chronic Qualified Code(s): I48.2 - Chronic atrial fibrillation - Time Spent With Patient Total time spent is greater than 50% in coordination of care (as documented) at patient's floor/unit and/or counseling patient: - Constitutional Vitals: Temp Pulse Resp BP Pulse Ox 97.6 F 92 17 102/74 91 01/26/18 15:55 01/26/18 15:55 01/26/18 15:55 01/26/18 15:55 01/26/18 15:55 Internal Medicine: Result - Labs CBC & Chem 7: 01/25/18 03:41 01/26/18 03:43 Labs: BMP 01/26/18 03:43 Sodium 134 L Potassium 4.7 Chloride 102 Carbon Dioxide 22 L BUN 56 H Creatinine 2.49 H Glucose 154 H Calcium 9.2 - ABG Interpretation ABG results: PT/INR, D-dimer PT 23.3 Seconds (9.4-12.1) H 01/23/18 23:24 - Attending Attestation I examined this patient and my medical decision-making was reviewed with the Resident Physician on 01/26/18. I agree with the documented findings, disposition and treatment plan as described except to the extent set forth below. Ms Wiley is currently admitted for acute rapid a fib and CHF exacerbation. She remains moderate to high risk due to potential for worsening clinical status. Ms Wiley is still tachycardic. She is on amiodarone per cardiology. Her breathing is improving some. No fever or chills. No GI issues. Exam alert Comfortable at rest Mucus membranes dry Heart irreg and tachy Lungs diminished Abd soft I/P 1. a fib 2. CHF Further diagnoses and plan as above. Loading with amio. May need cardioversion if does not help.
--- NOTE | 2018-01-26 11:03 | Cardiology Progress Note ---
Date of Encounter: 01/26/18 Time of Encounter: 09:45 Assessment and Plan (1) Atrial fibrillation with RVR Current Visit: Yes Status: Acute Per cardiology: -States was recently diagnosed with a.fib in November, has been on cardizem CD 240mg. -On eliquis 2.5mg BID for anticoagulation. -Average HR previous 12 hours noted to be 115, a.fib. -Currently on cardizem drip at 10mg/hour. -TTE from [place] 11/2017 reviewed with LVEF 60%, indeterminate diastolic function, moderate MR, moderate TR, mild PH, no segmental wall motion abnormalities noted. - on amiodarone 400mg BID. Recommend 400mg BID for 3 days, then 200mg BID for one month. -Will repeat ECG today. -Titrate cardizem drip for HR less than 100 if BP will allow. -Can consider outpatient DCCV if able to be rate controlled. (2) CKD (chronic kidney disease) stage 4, GFR 15-29 ml/min Current Visit: Yes Status: Acute Per cardiology: -Creatinine today 2.49 -Labs reviewed from [facility] 11/2017 with creatinine 2. -Management per primary service. (3) Anemia Current Visit: Yes Status: Acute Per cardiology: -Hemoglobin 7.5. -Denies active bleeding or blood loss. -On eliquis 2.5mg BID for anticoagulation. -Management per primary service. Qualifiers: Anemia type: due to chronic kidney disease Chronic kidney disease stage: stage 4 (severe) Qualified Code(s): N18.4 - Chronic kidney disease, stage 4 ( severe); D63.1 - Anemia in chronic kidney disease (4) Congestive heart failure Current Visit: Yes Status: Chronic Per cardiology: -Known diastolic CHF. -Reports increased shortness of breath on admission, states at baseline today. -Chest x-ray with bilateral pleural effusions, mild increase in pulmonary vasculature. -BNP 100s. -On IV lasix. Has net positive fluid balance of 100ml. -Lower extremity edema noted, states baseline since November. -TTE as above with LVEF preserved. -Strict i/os, daily weights, fluid restriction. -José Miguel repeat BNP today. Qualifiers: Heart failure type: diastolic Heart failure chronicity: chronic Qualified Code(s): I50.32 - Chronic diastolic (congestive) heart failure (5) Elevated troponin Current Visit: Yes Status: Acute Per cardiology: -Troponins 0.04 x3 in the setting of CKD, anemia, a.fib RVR. -Denies chest pain. -ECG with no acute ischemic changes. -Recent TTE as above with LVEF 60%, no segmental wall motion abnormalities. -DO not suspect NSTEMI, suspect demand ischemia related to above. NO cardiac rehab consult warranted. Discussion w patient/family: The assessment and plan as outlined above was discussed with the patient who expressed understanding and agreement. All questions were answered. Thank you for involving us in the care of your patient. Please call with any questions. Discussed and reviewed with Subjective Principal diagnosis: CHF, a.fib RVR Interval history: Denies chest pain. Reports some shortness of breath. Still requiring O2. Objective Vital Signs, Last 4 Hours Temp Pulse Resp BP Pulse Ox 01/26/18 07:07 97.8 F 113 24 107/90 91 General: Conversant, No Apparent Distress HEENT: Atraumatic, Normocephaly, Mucus Membranes Moist Neck: No JVD, Normal carotid pulses Cardiac: Normal S1 and S2, No Murmur, Other (Irregularly irregular ) Lungs: Normal Breath Sounds, No Wheeze, Rales, Rhonchi Neuro: Alert and responsive, No focal deficits noted Abdomen: Soft, Non-Tender Skin: No rashes noted on visualized skin Musculoskeletal: No Chest Wall Tenderness Extremities: No Clubbing, No Cyanosis, Normal Pulses, Other (Mild bilateral pedal edema noted. ) Results 01/25/18 03:41 01/26/18 03:43 Lab Results Active Medications Amiodarone HCl (Cordarone) 400 mg PO BID [place] Stop: 07/27/18 12:01 Last Admin: 01/26/18 08:22 Dose: 400 mg Apixaban (Eliquis) 2.5 mg PO BID [place] Stop: 07/26/18 09:01 Last Admin: 01/26/18 08:20 Dose: 2.5 mg Fluoxetine HCl (Prozac) 20 mg PO BID [place] Stop: 07/27/18 21:01 Last Admin: 01/26/18 08:20 Dose: 20 mg Furosemide (Lasix) 40 mg IVP DAILY [place] Stop: 07/26/18 09:01 Last Admin: 01/25/18 11:00 Dose: Not Given Gabapentin (Neurontin) 300 mg PO HS [place] Stop: 07/27/18 21:01 Last Admin: 01/25/18 20:41 Dose: 300 mg Diltiazem HCl 50 mg/ Sodium (Chloride) 50 mls @ 5 mls/hr IVC .Q10H [place]; 5 MG/HR PRN Reason: Protocol Stop: 07/25/18 23:16 Last Admin: 01/26/18 10:10 Dose: 10 mg/hr, 10 mls/hr Lorazepam (Ativan) 1 mg PO HS PRN PRN Reason: Insomnia Stop: 07/26/18 16:36 Last Admin: 01/25/18 20:42 Dose: 1 mg Multivitamins/Calcium (Thera M Plus) 1 tab PO DAILY [facility] Stop: 07/28/18 09:01 Last Admin: 01/26/18 08:20 Dose: 1 tab Naloxone HCl (Narcan) 0.4 mg IVP Q2MIN PRN PRN Reason: SEE COMMENTS Stop: 07/26/18 02:46 Nitroglycerin (Nitroglycerin) 0.2 mg TD 0800 [facility] Stop: 07/28/18 08:01 Last Admin: 01/26/18 08:21 Dose: 0.2 mg Omeprazole (Prilosec) 20 mg PO DAILY@0630 [facility] Stop: 07/28/18 06:31 Last Admin: 01/26/18 06:18 Dose: 20 mg Polysaccharide Iron Complex (Ferrex 150) 150 mg PO DAILY [facility] Stop: 07/28/18 09:01 Last Admin: 01/26/18 08:20 Dose: 150 mg Laboratory Tests 01/25/18 01/25/18 01/26/18 03:41 03:41 03:43 Hgb 7.5 L Potassium 4.7 Creatinine 2.55 H 2.49 H - Imaging and Cardiology Chest Xray: report reviewed Echo: report reviewed - EKG Interpretation EKG results cardiology: other (Telemetry reviewed with average HR previous 12 hours noted to be 115, a.fib. PVCs noted.) Consult Discharge Plan - Plan Referrals: NONE,PCP [Primary Care Provider] -
--- NOTE | 2018-01-26 17:49 | Electrocardiograph Report ---
[place] [id number] Test Date: 2018-01-26 Pat Name: Judy Wiley Department: 111 Room: [facility] Gender: F [employer] L[employer]: : 1930 Requested By: Lupis Gasca Order Number: [id number] Reading MD: Gulshan Madison Measurements Intervals [place] Rate: 107 P: IA: 0 QRS: 37 QRSD: 103 T: 0 QT: 335 QTc: 398 Interpretive Statements ATRIAL FIBRILLATION WITH RAPID VENTRICULAR RESPONSE LOW QRS VOLTAGE IN EXTREMITY LEADS ABNORMAL RHYTHM ECG Electronically Signed On 01-26-2018 17:47:34 EDT by Gulshan Madison
[2018-01-26] MEDS: Gabapentin 300 MG CAPSULE PO SCH (20:55)
[2018-01-26] MEDS: *HR* LORazepam 1 MG TABLET PO PRN (20:55)
[2018-01-27 04:27] LABS: Basophils % 0.1 %; Eosinophils % 0.3 %; Hematocrit 26.1 % (35.3-44.9); Hemoglobin 8.1 g/dL (11.5-15.4); Immature Granulocytes % 0.6 % (0-4); Lymphocytes # 0.8 K/mcL (0.6-4.6); Lymphocytes % 8.2 %; Mean Corpuscular Volume 80.6 fL (83.0-100.0); Mean Platelet Volume 10.7 fL (9.4-12.4); Monocytes # 1.4 K/mcL (0.0-1.3); Monocytes % 13.4 %; Neutrophils # 7.8 K/mcL (1.6-8.9); Nucleated Red Blood Cells 0.2 /100 WBC (0); Platelet Count 318 K/mcL (140-400); Red Blood Count 3.24 M/mcL (3.82-4.97); Red Cell Distribution Width 15.9 % (11.5-14.5); Segmented Neutrophils % 77.4 %
[2018-01-27 04:53] LABS: Calcium 9.4 mg/dL (8.6-10.3); Potassium 5.1 mEq/L (3.5-5.1)
[2018-01-27] MEDS: Iron Polysaccharide Complex 150 MG CAPSULE PO SCH (07:37)
[2018-01-27] MEDS: FLUoxetine 20 MG CAPSULE PO SCH ×2 (07:37→20:30)
[2018-01-27] MEDS: *HR* Amiodarone 200 MG TABLET PO SCH ×2 (07:37→20:31)
[2018-01-27] MEDS: Multivit/Ca/Min/Fe/FA 1 TAB TABLET PO SCH (07:37)
[2018-01-27] MEDS: Nitroglycerin 0.2 MG PATCH.TD24 TD SCH (07:37)
[2018-01-27] MEDS: Apixaban 5 MG TABLET PO SCH ×2 (07:37→20:30)
--- NOTE | 2018-01-27 08:56 | Internal Med Progress Note ---
<Sonido Penaloza - Last Filed: 01/27/18 13:08> Date of Encounter: 01/27/18 Time of Encounter: 08:56 - Assessment and plan (1) Atrial fibrillation with RVR Current Visit: Yes Status: Acute Assessment and plan: Appreciate cardio consultation Per cardio recs: Amiodarone 400mg BID for day 3 of 3. Start 200mg BID for one month beginning tomorrow. Stop Cardizem drip and switch to Cardizem 60mg q8h. (2) CKD (chronic kidney disease) stage 4, GFR 15-29 ml/min Current Visit: Yes Status: Acute Assessment and plan: Kidney functions increased at Cr. 2.99 Records from [facility] from 12/24 and 12/25 revealed Creatinine 2.0 and 1.9, which may be closer to pt baseline hold lasix as tolerated by pt Decrease gabapentin to 100mg increase amount of fluid allowed for fluid restriction 500mL NS Consult Nephrology continue to monitor kidney functions (3) Acute exacerbation of congestive heart failure Current Visit: Yes Status: Acute Assessment and plan: SOB improved Likely exacerbated by the Afib with RVR Strict I&Os Fluid +100mL today, but holding diuresis for worsening kidney functions Qualifiers: Heart failure type: diastolic Qualified Code(s): I50.33 - Acute on chronic diastolic (congestive) heart failure (4) Anemia Current Visit: Yes Status: Acute Qualifiers: Anemia type: due to chronic kidney disease Chronic kidney disease stage: stage 4 (severe) Qualified Code(s): N18.4 - Chronic kidney disease, stage 4 ( severe); D63.1 - Anemia in chronic kidney disease (5) Elevated troponin Current Visit: Yes Status: Acute (6) DVT prophylaxis Current Visit: Yes Status: Acute (7) Atrial fibrillation Current Visit: Yes Status: Chronic Qualifiers: Atrial fibrillation type: chronic Qualified Code(s): I48.2 - Chronic atrial fibrillation - Time Spent With Patient Total time spent is greater than 50% in coordination of care (as documented) at patient's floor/unit and/or counseling patient: - Subjective Interval history: Ms. Wiley is an 87-year-old female, with a history of atrial fibrillation, CHF and CKD, who was admitted for shortness of breath and dyspnea. 01/24: During this encounter the patient was laying in bed in minor distress. Still complaining of shortness of breath, but stated it has improved slightly. Patient also states she still feels very "swollen" and warm. The patient is noted to be afebrile at this time. Patient complains of some chest tightness, but denies any chest pain. Also denies any abdominal pain, nausea, vomiting, or diarrhea. 01/25: Pt had an episode of SOB last night, but improved after receiving her home Ativan. Pt sitting comfortably on the side of bed this AM eating breakfast. States she feels much better today compared to yesterday, and the chest tightness has improved, with no difficulty breathing. Denies any chest pain, abdominal pain, nausea, vomiting, or diarrhea. 01/26: No acute events overnight. Pt sitting comfortably in bed with no new complaints. Pt states she only feels SOB when she lays flat or if she gets up to walk. Able to speak in full sentences. Denies any chest pain, abdominal pain , nausea, vomiting, or diarrhea. 01/27: No acute events overnight. Pt sitting in bed eating breakfast. States she feels "ok". Only SOB when laying flat. Able to speak in full sentences. Denies any chest pain, abdominal pain, nausea, vomiting, diarrhea, or headache. - Constitutional Vitals: Temp Pulse Resp BP Pulse Ox 97.6 F 86 16 116/85 94 01/27/18 07:32 01/27/18 07:32 01/27/18 07:32 01/27/18 07:32 01/27/18 07:32 General appearance: Present: A&O X 3, pleasant, no acute distress Exam: Head: Normocephalic and atraumatic Eyes: PERRL, EOMI, conjunctivae pink, sclerae anicteric Heart: Irregular rhythm, +S2. no clicks or rubs noted Lungs: Fine wheezes noted in right upper lobe, remaining lobes CTA. unlabored breathing. No rales, or rhonchi. GI: Abdomen soft, non-distended, nontender, normoactive bowel sounds. : Gottlieb catheter noted with orange/yellow urine in tube and bag Extremities: Warm, pulses palpable and symmetrical. +1 pitting edema. No cyanosis noted. Neuro: Alert and oriented 3, no focal deficits, no speech difficulty. Skin: Warm, dry, intact. Internal Medicine: Result - Labs CBC & Chem 7: 07/07/18 04:02 01/27/18 04:02 Labs: Short CBC 01/27/18 Range/Units 04:02 WBC 10.1 (4.3-11.1) K/mcL Hgb 8.1 L (11.5-15.4) g/dL Hct 26.1 L (35.3-44.9) % Plt Count 318 (140-400) K/mcL Neutrophils # 7.8 (1.6-8.9) K/mcL BMP 01/27/18 04:02 Sodium 132 L Potassium 5.1 Chloride 100 Carbon Dioxide 20 L BUN 70 H Creatinine 2.99 H Glucose 131 H Calcium 9.4 - ABG Interpretation ABG results: PT/INR, D-dimer PT 23.3 Seconds (9.4-12.1) H 01/23/18 23:24 Consult Discharge Plan - Plan Referrals: NONE,PCP [Primary Care Provider] - <Ariel Nolan - Last Filed: 01/27/18 17:06> Date of Encounter: 01/27/18 - Assessment and plan (1) Atrial fibrillation with RVR Current Visit: Yes Status: Acute (2) Acute exacerbation of congestive heart failure Current Visit: Yes Status: Acute Qualifiers: Heart failure type: diastolic Qualified Code(s): I50.33 - Acute on chronic diastolic (congestive) heart failure (3) DVT prophylaxis Current Visit: Yes Status: Acute (4) CKD (chronic kidney disease) stage 4, GFR 15-29 ml/min Current Visit: Yes Status: Acute (5) Anemia Current Visit: Yes Status: Acute Qualifiers: Anemia type: due to chronic kidney disease Chronic kidney disease stage: stage 4 (severe) Qualified Code(s): N18.4 - Chronic kidney disease, stage 4 ( severe); D63.1 - Anemia in chronic kidney disease (6) Elevated troponin Current Visit: Yes Status: Acute (7) Atrial fibrillation Current Visit: Yes Status: Chronic Qualifiers: Atrial fibrillation type: chronic Qualified Code(s): I48.2 - Chronic atrial fibrillation - Time Spent With Patient Total time spent is greater than 50% in coordination of care (as documented) at patient's floor/unit and/or counseling patient: - Constitutional Vitals: Temp Pulse Resp BP Pulse Ox 97.6 F 86 16 116/85 94 01/27/18 07:32 01/27/18 07:32 01/27/18 07:32 01/27/18 07:32 01/27/18 07:32 Internal Medicine: Result - Labs CBC & Chem 7: 01/27/18 04:02 01/27/18 04:02 Labs: Short CBC 01/27/18 Range/Units 04:02 WBC 10.1 (4.3-11.1) K/mcL Hgb 8.1 L (11.5-15.4) g/dL Hct 26.1 L (35.3-44.9) % Plt Count 318 (140-400) K/mcL Neutrophils # 7.8 (1.6-8.9) K/mcL BMP 01/27/18 04:02 Sodium 132 L Potassium 5.1 Chloride 100 Carbon Dioxide 20 L BUN 70 H Creatinine 2.99 H Glucose 131 H Calcium 9.4 - ABG Interpretation ABG results: PT/INR, D-dimer PT 23.3 Seconds (9.4-12.1) H 01/23/18 23:24 - Attending Attestation I examined this patient and my medical decision-making was reviewed with the Resident Physician on 01/27/18. I agree with the documented findings, disposition and treatment plan as described except to the extent set forth below. Ms Wiley is currently admitted for acute exac CHF and rapid a fib. Her creatinine is elevated more today. She remains moderate to high risk due to potential for worsening clinical status. Ms Wiley is still dyspneic. Her heartrate is better controlled today. No fever or chills. She still has edema and difficulty moving around. Exam alert Mod resp distress. Mucus membranes dry Heart irreg - not tachy now Lungs with scattered rales. Edema present. I/P 1. Rapid a fib - better rate controlled now. 2. Acute exac CHF - continue diuresis 3. BOOM - due to ATN. Renal consult. Further diagnoses and plan as above.
[2018-01-27] MEDS ORDERED: 0.9 % Sodium Chloride 500 ML IVC SCH (10:15)
--- NOTE | 2018-01-27 11:51 | Cardiology Progress Note ---
Date of Encounter: 01/27/18 Time of Encounter: 09:30 Assessment and Plan (1) Atrial fibrillation with RVR Current Visit: Yes Status: Acute Per cardiology: -States was recently diagnosed with a.fib in November, has been on cardizem CD 240mg. -On eliquis 2.5mg BID for anticoagulation. -Average HR previous 12 hours noted to be 102, a.fib. -Currently on cardizem drip. -TTE from [place] 11/2017 reviewed with LVEF 60%, indeterminate diastolic function, moderate MR, moderate TR, mild PH, no segmental wall motion abnormalities noted. - on amiodarone 400mg BID. Recommend 400mg BID for 3 days, then 200mg BID for one month. -Discussed and reviewed with , will start cardizm 60mg Q8 hours, will stop cardizem drip. -Will start amiodarone 200mg BID starting tomorrow. -Will continue to monitor. (2) CKD (chronic kidney disease) stage 4, GFR 15-29 ml/min Current Visit: Yes Status: Acute Per cardiology: -Creatinine today 2.99 -Labs reviewed from [facility] 11/2017 with creatinine 2. -Management per primary service. (3) Anemia Current Visit: Yes Status: Acute Per cardiology: -Hemoglobin 8.1 today -Denies active bleeding or blood loss. -On eliquis 2.5mg BID for anticoagulation. -Management per primary service. Qualifiers: Anemia type: due to chronic kidney disease Chronic kidney disease stage: stage 4 (severe) Qualified Code(s): N18.4 - Chronic kidney disease, stage 4 ( severe); D63.1 - Anemia in chronic kidney disease (4) Congestive heart failure Current Visit: Yes Status: Chronic Per cardiology: -Known diastolic CHF. -Reports increased shortness of breath on admission, states at baseline today. -Chest x-ray with bilateral pleural effusions, mild increase in pulmonary vasculature. -Lower extremity edema noted, states baseline since November. -TTE as above with LVEF preserved. -Strict i/os, daily weights, fluid restriction. Qualifiers: Heart failure type: diastolic Heart failure chronicity: chronic Qualified Code(s): I50.32 - Chronic diastolic (congestive) heart failure (5) Elevated troponin Current Visit: Yes Status: Acute Per cardiology: -Troponins 0.04 x3 in the setting of CKD, anemia, a.fib RVR. -Denies chest pain. -ECG with no acute ischemic changes. -Recent TTE as above with LVEF 60%, no segmental wall motion abnormalities. -DO not suspect NSTEMI, suspect demand ischemia related to above. NO cardiac rehab consult warranted. Discussion w patient/family: The assessment and plan as outlined above was discussed with the patient who expressed understanding and agreement. All questions were answered. Thank you for involving us in the care of your patient. Please call with any questions. Discussed and reviewed with Subjective Principal diagnosis: CHF, a.fib RVR Interval history: Patient sitting on the side of the bed. States she feels better this morning. States shortness of breath is improved. Objective Vital Signs Temperature 97.8 F 01/23/18 22:43 Pulse Rate 137 01/23/18 22:43 Respiratory Rate 26 01/23/18 22:43 Blood Pressure 139/74 01/23/18 22:43 O2 Sat by Pulse Oximetry 94 01/23/18 22:43 Temperature 97.6 F 01/27/18 07:32 Pulse Rate 86 01/27/18 07:32 Respiratory Rate 16 01/27/18 07:32 Blood Pressure 116/85 01/27/18 07:32 O2 Sat by Pulse Oximetry 94 01/27/18 07:32 Oxygen Delivery Oxygen Delivery Nasal Cannula General: Conversant, No Apparent Distress HEENT: Atraumatic, Normocephaly, Mucus Membranes Moist Neck: No JVD, Normal carotid pulses Cardiac: Normal S1 and S2, No Murmur, Other (Irregularly irregular ) Lungs: Normal Breath Sounds, No Wheeze, Rales, Rhonchi Neuro: Alert and responsive, No focal deficits noted Abdomen: Soft, Non-Tender Skin: No rashes noted on visualized skin Musculoskeletal: No Chest Wall Tenderness Extremities: No Clubbing, No Cyanosis, No Edema, Normal Pulses Results 01/27/18 04:02 01/27/18 04:02 Lab Results Active Medications Amiodarone HCl (Cordarone) 400 mg PO BID [facility] Stop: 07/27/18 12:01 Last Admin: 01/27/18 07:37 Dose: 400 mg Apixaban (Eliquis) 2.5 mg PO BID [facility] Stop: 07/26/18 09:01 Last Admin: 01/27/18 07:37 Dose: 2.5 mg Diltiazem HCl (Cardizem) 60 mg PO Q8HR [facility] Stop: 07/29/18 16:01 Fluoxetine HCl (Prozac) 20 mg PO BID [facility] Stop: 07/27/18 21:01 Last Admin: 01/27/18 07:37 Dose: 20 mg Gabapentin (Neurontin) 100 mg PO HS [facility] Stop: 07/29/18 21:01 Diltiazem HCl 50 mg/ Sodium (Chloride) 50 mls @ 5 mls/hr IVC .Q10H [facility]; 5 MG/HR PRN Reason: Protocol Stop: 07/25/18 23:16 Last Admin: 01/27/18 11:12 Dose: 10 mg/hr, 10 mls/hr Sodium Chloride (0.9 % Sodium Chloride) 500 mls @ 50 mls/hr IVC .Q10H [facility] Stop: 07/29/18 10:16 Last Admin: 01/27/18 11:12 Dose: 50 mls/hr Lorazepam (Ativan) 1 mg PO HS PRN PRN Reason: Insomnia Stop: 07/26/18 16:36 Last Admin: 01/26/18 20:55 Dose: 1 mg Multivitamins/Calcium (Thera M Plus) 1 tab PO DAILY [facility] Stop: 07/28/18 09:01 Last Admin: 01/27/18 07:37 Dose: 1 tab Naloxone HCl (Narcan) 0.4 mg IVP Q2MIN PRN PRN Reason: SEE COMMENTS Stop: 07/26/18 02:46 Nitroglycerin (Nitroglycerin) 0.2 mg TD 0800 [facility] Stop: 07/28/18 08:01 Last Admin: 01/27/18 07:37 Dose: 0.2 mg Omeprazole (Prilosec) 20 mg PO DAILY@0630 [facility] Stop: 07/28/18 06:31 Last Admin: 01/27/18 05:39 Dose: 20 mg Polysaccharide Iron Complex (Ferrex 150) 150 mg PO DAILY [facility] Stop: 07/28/18 09:01 Last Admin: 01/27/18 07:37 Dose: 150 mg Laboratory Tests 01/26/18 01/27/18 01/27/18 03:43 04:02 04:02 Hgb 8.1 L Creatinine 2.49 H 2.99 H - Imaging and Cardiology Chest Xray: report reviewed Echo: report reviewed - EKG Interpretation EKG results cardiology: other (Telemetry reviewed with average HR previous 12 hours noted to be 102, a.fib. PVCs noted.) Consult Discharge Plan - Plan Referrals: NONE,PCP [Primary Care Provider] -
--- NOTE | 2018-01-27 16:07 | Nephrology Consult Note ---
Date of Encounter: 01/27/18 Time of Encounter: 12:00 Assessment and Plan (1) BOOM (acute kidney injury) Current Visit: Yes Status: Acute Elevated SCr in the setting of CHF and diuresis and anemia Agree with holding lasix for now Will stop IVF given SOB, po fluids only instead Discussed at lenght worsening renal fxn and the likely need for [employer] if any worse , pt is open to this if necessary will check urine studies Obtain Us of kidney (2) Congestive heart failure Current Visit: Yes Status: Chronic Continu strict I/Os Continue fluid restriction, IVF held but po fluids ok Pt aware that if more diuretics needed for resp distress, may affect renal fxn Qualifiers: Heart failure type: diastolic Heart failure chronicity: chronic Qualified Code(s): I50.32 - Chronic diastolic (congestive) heart failure (3) CKD (chronic kidney disease) stage 4, GFR 15-29 ml/min Current Visit: Yes Status: Acute History of Present Illness - Reason for Consult Consult date: 01/27/18 Acute Kidney Injury, Chronic Kidney Disease Requesting physician: Sonido Penaloza - History of Present Illness 87 y o female with PMH of Afib, CKD (stage 3 per pt), dCHF, anemia admitted with SOB undergoing diuersis during stay. Renal consulted for worsening renal fxn with SCr at 2.99, GFR 15. On admission SCr noted at 2.18, GFR 21 and baseline from [place] was 2.0 as of 11/2017. Pt follows with nephrology in [place] but denies any discussions on dialysis yet. Pt seen and examined, visibly dyspneic requiring immediate assistance. Helped up in bed and elevated head. Nurse at bedside increasing oxygn. IVF stopped Past Med Surg Social Fam HX - Past Medical History Medical history: arthritis, atrial fibrillation, CHF, renal disease Psychiatric history: anxiety, depression - Past Surgical History Surgical History: other (Cyst removed from kidney) Additional surgical history: Partial Right Kidney Removed - Social History Smoking Status: Never smoker Alcohol use: none Drug use: none Medications and Allergies Apixaban [Eliquis] 5 mg PO BID 01/24/18 [History] Diltiazem HCl [Diltiazem 24Hr Cd] 240 mg PO DAILY 01/24/18 [History] FLUoxetine HCl [Sarafem] 20 mg PO BID 01/24/18 [History] Furosemide [Lasix] 40 mg PO DAILY 01/24/18 [History] Gabapentin [Neurontin] 300 mg PO HS 01/24/18 [History] Iron Polysaccharide Complex [Ferric X-150] 150 mg PO DAILY 01/24/18 [History] Multivit-Min/FA/Lycopen/Lutein [Centrum Silver Tablet] 1 each PO DAILY 01/24/18 [History] Pantoprazole Sodium [Protonix] 40 mg PO DAILY 01/24/18 [History] Potassium Chloride [Klor-Con Sprinkle] 20 meq PO BID 01/24/18 [History] Spironolactone [Aldactone] 12.5 mg PO DAILY 01/24/18 [History] LORazepam [Ativan] 1 mg PO HS 01/25/18 [History] Nitroglycerin 0.2 mg TD DAILY 01/25/18 [History] 3 Allergy/AdvReac Type Severity Reaction Status Date / Time No Known Allergies Allergy Verified 01/25/18 08:26 Review of Systems ROS unobtainable: due to endotracheal tube (10 systems reviewed and noted in HPI ) Exam - Vital Signs Vital signs: Initial Vital Signs Temp Pulse Resp BP Pulse Ox 97.8 F 137 26 139/74 94 01/23/18 22:43 01/23/18 22:43 01/23/18 22:43 01/23/18 22:43 01/23/18 22:43 Intake and Output 01/27/18 01/27/18 01/27/18 07:59 15:59 23:59 Intake Total 400 / 400 720 / 720 Output Total 100 / 100 150 / 150 Balance 300 / 300 570 / 570 Intake: IV Fluids 100 / 100 Cardizem 50 MG In 0.9 % Sodium 100 / 100 Chloride 40 ML @ 5 MG/HR 5 mls/ hr IVC .Q10H [facility] Rx#:[id number] Oral 300 / 300 720 / 720 Output: Urine 100 / 100 Catheter 150 / 150 Other: Meal Lunch Percent of Meal Consumed 100% Stool Size Moderate Stool Consistency soft Stool Color Brown # Bowel Movements 1 Weight 90.4 kg Patient Weight 01/27/18 23:59 Weight 90.4 kg - General Appearance General appearance: moderate distress, chronically ill EENT: ATNC, mucous membranes moist Neck: no JVD, supple Additional Comments: good areation with decreased BS bases bilat Cardiology: edema, normal S1, normal S2 Gastrointestinal: no tenderness, no guarding, obese Integumentary: warm and dry Neurologic: no focal deficit Musculoskeletal: no deformities Psychiatric: mood/affect appropriate, cooperative Results - Lab Results 01/28/18 08:49 01/28/18 08:49 Most recent lab results Calcium 9.4 mg/dL (8.6-10.3) 01/27/18 04:02 Consult Discharge Plan - Plan Referrals: NONE,PCP [Primary Care Provider] -
[2018-01-27 20:03] LABS: Creatinine,Urine 127 mg/dL; Sodium, Urine < 10.0 mEq/L
[2018-01-27] MEDS: Gabapentin 100 MG CAPSULE PO SCH (20:30)
[2018-01-27] MEDS: *HR* LORazepam 1 MG TABLET PO PRN (23:03)
[2018-01-28 08:58] LABS: Hematocrit 26.7 % (35.3-44.9); Hemoglobin 8.2 g/dL (11.5-15.4); Mean Corpuscular HGB Conc 30.7 g/dL (31.6-35.5); Mean Corpuscular Volume 81.4 fL (83.0-100.0); Mean Platelet Volume 10.2 fL (9.4-12.4); Platelet Count 341 K/mcL (140-400); Red Blood Count 3.28 M/mcL (3.82-4.97)
[2018-01-28] MEDS: *HR* Amiodarone 200 MG TABLET PO SCH ×2 (09:08→20:52)
[2018-01-28] MEDS: Iron Polysaccharide Complex 150 MG CAPSULE PO SCH (09:08)
[2018-01-28] MEDS: FLUoxetine 20 MG CAPSULE PO SCH ×2 (09:08→20:53)
[2018-01-28] MEDS: Apixaban 5 MG TABLET PO SCH ×2 (09:08→20:52)
[2018-01-28] MEDS: Nitroglycerin 0.2 MG PATCH.TD24 TD SCH (09:08)
[2018-01-28] MEDS: Multivit/Ca/Min/Fe/FA 1 TAB TABLET PO SCH (09:08)
[2018-01-28 09:20] LABS: Calcium 9.2 mg/dL (8.6-10.3); Potassium 4.9 mEq/L (3.5-5.1)
--- NOTE | 2018-01-28 11:57 | Nephrology Progress Note ---
Date of Encounter: 01/28/18 Time of Encounter: 12:00 - Assessment and Plan (1) BOOM (acute kidney injury) Current Visit: Yes Status: Acute (2) Congestive heart failure Current Visit: Yes Status: Chronic Qualifiers: Heart failure type: diastolic Heart failure chronicity: chronic Qualified Code(s): I50.32 - Chronic diastolic (congestive) heart failure (3) CKD (chronic kidney disease) stage 4, GFR 15-29 ml/min Current Visit: Yes Status: Acute Subjective Principal diagnosis: CHF, a.fib RVR Objective - Vital Signs Vital signs: Vital Signs Temp Pulse Resp BP Pulse Ox 01/28/18 07:16 98.9 F 104 17 106/83 92 01/28/18 05:21 106 17 113/88 94 01/28/18 00:31 92 17 94/68 93 01/27/18 20:31 97.9 F 92 19 100/76 94 01/27/18 17:15 98.9 F 103 16 114/88 92 Intake and Output 01/27/18 01/28/18 01/28/18 23:59 07:59 15:59 Output Total 300 / 300 500 / 500 Balance -300 / -300 -500 / -500 Output: Urine 275 / 275 Catheter 300 / 300 225 / 225 Other: Weight 90.1 kg Patient Weight 01/28/18 23:59 Weight 90.1 kg - Lab 01/28/18 08:49 01/28/18 08:49 Most recent lab results Calcium 9.2 mg/dL (8.6-10.3) 01/28/18 08:49 Urine Creatinine 127 mg/dL 01/27/18 19:31 Urine Sodium < 10.0 mEq/L 01/27/18 19:31 Consult Discharge Plan - Plan Referrals: NONE,PCP [Primary Care Provider] -
--- NOTE | 2018-01-28 12:35 | Internal Med Progress Note ---
<Sky Castellanos - Last Filed: 01/28/18 12:30> Date of Encounter: 01/28/18 Time of Encounter: 11:00 - Assessment and plan (1) Atrial fibrillation with RVR Current Visit: Yes Status: Acute Assessment and plan: Appreciate cardio consultation Per cardio recs: Amiodarone 400mg BID for day 3 of 3. Start 200mg BID for one month beginning tomorrow. Stop Cardizem drip and switch to Cardizem 60mg q8h. 01/28 Rate has been controlled, transition to 200mg Amio BID per cardiology (2) Acute exacerbation of congestive heart failure Current Visit: Yes Status: Acute Assessment and plan: SOB improved Likely exacerbated by the Afib with RVR Strict I&Os Fluid +100mL today, but holding diuresis for worsening kidney functions 01/28 Renal function improved -500mL fluid balance in 24hr, +872mL cumulative We will get a CXR today Qualifiers: Heart failure type: diastolic Qualified Code(s): I50.33 - Acute on chronic diastolic (congestive) heart failure (3) CKD (chronic kidney disease) stage 4, GFR 15-29 ml/min Current Visit: Yes Status: Acute Assessment and plan: Kidney functions increased at Cr. 2.99 Records from [place] from 12/24 and 12/25 revealed Creatinine 2.0 and 1.9, which may be closer to pt baseline hold lasix as tolerated by pt Decrease gabapentin to 100mg increase amount of fluid allowed for fluid restriction 500mL NS Consult Nephrology continue to monitor kidney functions 8 Continue to hold diuresis, appreciate nephrology reccomendations (4) Anemia Current Visit: Yes Status: Acute Assessment and plan: Iron studies revealed low iron levels, but normal transferrin. Likely due to CKD Qualifiers: Anemia type: due to chronic kidney disease Chronic kidney disease stage: stage 4 (severe) Qualified Code(s): N18.4 - Chronic kidney disease, stage 4 ( severe); D63.1 - Anemia in chronic kidney disease (5) Elevated troponin Current Visit: Yes Status: Resolved Assessment and plan: likely demand ischemia from afib with rvr (6) DVT prophylaxis Current Visit: Yes Status: Acute Assessment and plan: on eliquis (7) Atrial fibrillation Current Visit: Yes Status: Chronic Assessment and plan: As above Qualifiers: Atrial fibrillation type: chronic Qualified Code(s): I48.2 - Chronic atrial fibrillation - Time Spent With Patient Total time spent is greater than 50% in coordination of care (as documented) at patient's floor/unit and/or counseling patient: - Subjective Interval history: The patient is resting comfortably in bed at time of exam. She says that she would like to be able to get up and move more than she has up until this point. - Constitutional Vitals: Temp Pulse Resp BP Pulse Ox 98.9 F 104 17 106/83 92 01/28/18 07:16 01/28/18 07:16 01/28/18 07:16 01/28/18 07:16 01/28/18 07:16 General appearance: Present: A&O X 3, pleasant, no acute distress Exam: Head: Normocephalic and atraumatic Eyes: PERRL, EOMI, conjunctivae pink, sclerae anicteric Heart: Irregular rhythm, +S2. no clicks or rubs noted Lungs: unlabored breathing. fine crackles with diminished bases b/l GI: Abdomen soft, non-distended, nontender, normoactive bowel sounds. : Gottlieb catheter noted with orange/yellow urine in tube and bag Extremities: Warm, pulses palpable and symmetrical. +1 pitting edema. No cyanosis noted. Neuro: Alert and oriented 3, no focal deficits, no speech difficulty. Skin: Warm, dry, intact. Internal Medicine: Result - Labs CBC & Chem 7: 01/28/18 08:49 01/28/18 08:49 Labs: Short CBC 01/28/18 Range/Units 08:49 WBC 9.5 (4.3-11.1) K/mcL Hgb 8.2 L (11.5-15.4) g/dL Hct 26.7 L (35.3-44.9) % Plt Count 341 (140-400) K/mcL BMP 01/28/18 08:49 Sodium 131 L Potassium 4.9 Chloride 100 Carbon Dioxide 24 BUN 72 H Creatinine 2.76 H Glucose 193 H Calcium 9.2 - ABG Interpretation ABG results: PT/INR, D-dimer PT 23.3 Seconds (9.4-12.1) H 01/23/18 23:24 Consult Discharge Plan - Plan Referrals: NONE,PCP [Primary Care Provider] - <Ariel Nolan - Last Filed: 01/28/18 16:54> Date of Encounter: 01/28/18 - Assessment and plan (1) Atrial fibrillation with RVR Current Visit: Yes Status: Acute (2) Acute exacerbation of congestive heart failure Current Visit: Yes Status: Acute Qualifiers: Heart failure type: diastolic Qualified Code(s): I50.33 - Acute on chronic diastolic (congestive) heart failure (3) DVT prophylaxis Current Visit: Yes Status: Acute (4) CKD (chronic kidney disease) stage 4, GFR 15-29 ml/min Current Visit: Yes Status: Acute (5) Anemia Current Visit: Yes Status: Acute Qualifiers: Anemia type: due to chronic kidney disease Chronic kidney disease stage: stage 4 (severe) Qualified Code(s): N18.4 - Chronic kidney disease, stage 4 ( severe); D63.1 - Anemia in chronic kidney disease (6) Elevated troponin Current Visit: Yes Status: Resolved (7) Atrial fibrillation Current Visit: Yes Status: Chronic Qualifiers: Atrial fibrillation type: chronic Qualified Code(s): I48.2 - Chronic atrial fibrillation - Time Spent With Patient Total time spent is greater than 50% in coordination of care (as documented) at patient's floor/unit and/or counseling patient: - Constitutional Vitals: Temp Pulse Resp BP Pulse Ox 98.9 F 104 17 106/83 92 01/28/18 07:16 01/28/18 07:16 01/28/18 07:16 01/28/18 07:16 01/28/18 07:16 Internal Medicine: Result - Labs CBC & Chem 7: 01/28/18 08:49 01/28/18 08:49 Labs: Short CBC 01/28/18 Range/Units 08:49 WBC 9.5 (4.3-11.1) K/mcL Hgb 8.2 L (11.5-15.4) g/dL Hct 26.7 L (35.3-44.9) % Plt Count 341 (140-400) K/mcL BMP 01/28/18 08:49 Sodium 131 L Potassium 4.9 Chloride 100 Carbon Dioxide 24 BUN 72 H Creatinine 2.76 H Glucose 193 H Calcium 9.2 - ABG Interpretation ABG results: PT/INR, D-dimer PT 23.3 Seconds (9.4-12.1) H 01/23/18 23:24 - Impressions Impressions Chest X-Ray 01/28/18 10:14 IMPRESSION: Minimal improvement of mild interstitial edema. Persistent small bilateral pleural effusions. D/ / Merle Centeno MD / Merle Centeno MD Interpreting Provider: Merle Centeno MD - Attending Attestation I examined this patient and my medical decision-making was reviewed with the Resident Physician on 01/28/18. I agree with the documented findings, disposition and treatment plan as described except to the extent set forth below. Ms Wiley is currently admitted for acute exac CHF, rapid a fib and BOOM. She remains moderate to high risk due to potential for worsening clinical status. Ms. Wiley is breathing somewhat better today. She is now up in chair. No CP. No fever or chills or GI issue. Exam alert Comfortable Mucus membranes dry Heart irreg - not tachy Lungs with scattered rales Edema present I/P 1. Rapid a fib - seems better rate controlled 2. Acute exac CHF 3. BOOM Further diagnoses and plan as above.
--- NOTE | 2018-01-28 14:00 | Cardiology Progress Note ---
Date of Encounter: 01/28/18 Time of Encounter: 08:45 Assessment and Plan (1) Atrial fibrillation with RVR Current Visit: Yes Status: Acute Per cardiology: -States was recently diagnosed with a.fib in November, has been on cardizem CD 240mg. -On eliquis 2.5mg BID for anticoagulation. -Average HR previous 12 hours noted to be 92, a.fib. -TTE from [facility] 11/2017 reviewed with LVEF 60%, indeterminate diastolic function, moderate MR, moderate TR, mild PH, no segmental wall motion abnormalities noted. -Currently on cardizem 60mg Q8 hours, on amiodarone 200mg BID, recommended for one month. -Will continue to monitor. (2) CKD (chronic kidney disease) stage 4, GFR 15-29 ml/min Current Visit: Yes Status: Acute Per cardiology: -Creatinine today 2.76 -[facility]abs [facility] 11[facility] with creatinine 2. -Nephrology consulted. Appreciate recommendations. -Management per primary service. (3) Anemia Current Visit: Yes Status: Acute Per cardiology: -Hemoglobin 8.2 today -Denies active bleeding or blood loss. -On eliquis 2.5mg BID for anticoagulation. -Management per primary service. Qualifiers: Anemia type: due to chronic kidney disease Chronic kidney disease stage: stage 4 (severe) Qualified Code(s): N18.4 - Chronic kidney disease, stage 4 ( severe); D63.1 - Anemia in chronic kidney disease (4) Congestive heart failure Current Visit: Yes Status: Chronic Per cardiology: -Known diastolic CHF. -Reports increased shortness of breath on admission,O2 requirements increasing. -Chest x-ray with bilateral pleural effusions, mild increase in pulmonary vasculature. -Lower extremity edema noted, states baseline since November. -TTE as above with LVEF preserved. -Lasix has been held with renal function. -Net positive fluid balance of 800ml. -Strict i/os, daily weights, fluid restriction. -Agree with chest x-ray today to assess volume status. Pending results consider IR consult for pleural effusions. Qualifiers: Heart failure type: diastolic Heart failure chronicity: chronic Qualified Code(s): I50.32 - Chronic diastolic (congestive) heart failure (5) Elevated troponin Current Visit: Yes Status: Resolved Per cardiology: -Troponins 0.04 x3 in the setting of CKD, anemia, a.fib RVR. -Denies chest pain. -ECG with no acute ischemic changes. -Recent TTE as above with LVEF 60%, no segmental wall motion abnormalities. -DO not suspect NSTEMI, suspect demand ischemia related to above. NO cardiac rehab consult warranted. Discussion w patient/family: The assessment and plan as outlined above was discussed with the patient who expressed understanding and agreement. All questions were answered. Thank you for involving us in the care of your patient. Please call with any questions. Discussed and reviewed with Subjective Principal diagnosis: CHF, a.fib RVR Interval history: Patient sitting in chair at time of assessment. States she feels shortness of breath is improving, however her O2 requirements are increasing. Objective Vital Signs Temperature 97.8 F 01/23/18 22:43 Pulse Rate 137 01/23/18 22:43 Respiratory Rate 26 01/23/18 22:43 Blood Pressure 139/74 01/23/18 22:43 O2 Sat by Pulse Oximetry 94 01/23/18 22:43 Temperature 98.9 F 01/28/18 07:16 Pulse Rate 104 01/28/18 07:16 Respiratory Rate 17 01/28/18 07:16 Blood Pressure 106/83 01/28/18 07:16 O2 Sat by Pulse Oximetry 92 01/28/18 07:16 Oxygen Delivery Oxygen Delivery Nasal Cannula General: Conversant, No Apparent Distress HEENT: Atraumatic, Normocephaly, Mucus Membranes Moist Neck: No JVD, Normal carotid pulses Cardiac: Normal S1 and S2, No Murmur, Other (Irregularly irregular ) Lungs: Other (Right LL diminished lung sounds. ) Neuro: Alert and responsive, No focal deficits noted Abdomen: Soft, Non-Tender Skin: No rashes noted on visualized skin Musculoskeletal: No Chest Wall Tenderness Extremities: No Clubbing, No Cyanosis, Normal Pulses, Other (Mild bilateral pedal edema noted, non-pitting. ) Results 01/28/18 08:49 01/28/18 08:49 Lab Results Active Medications Amiodarone HCl (Cordarone) 200 mg PO BID COUNTS INCLUDE 234 BEDS AT THE [facility] Stop: 07/30/18 09:01 Last Admin: 01/28/18 09:08 Dose: 200 mg Apixaban (Eliquis) 2.5 mg PO BID COUNTS INCLUDE 234 BEDS AT THE [facility] Stop: 07/26/18 09:01 Last Admin: 01/28/18 09:08 Dose: 2.5 mg Diltiazem HCl (Cardizem) 60 mg PO Q8HR [place] Stop: 07/29/18 16:01 Last Admin: 01/28/18 09:08 Dose: 60 mg Fluoxetine HCl (Prozac) 20 mg PO BID [place] Stop: 07/27/18 21:01 Last Admin: 01/28/18 09:08 Dose: 20 mg Gabapentin (Neurontin) 100 mg PO HS [place] Stop: 07/29/18 21:01 Last Admin: 01/27/18 20:30 Dose: 100 mg Lorazepam (Ativan) 1 mg PO HS PRN PRN Reason: Insomnia Stop: 07/26/18 16:36 Last Admin: 01/27/18 23:03 Dose: 1 mg Multivitamins/Calcium (Thera M Plus) 1 tab PO DAILY [place] Stop: 07/28/18 09:01 Last Admin: 01/28/18 09:08 Dose: 1 tab Naloxone HCl (Narcan) 0.4 mg IVP Q2MIN PRN PRN Reason: SEE COMMENTS Stop: 07/26/18 02:46 Nitroglycerin (Nitroglycerin) 0.2 mg TD 0800 [place] Stop: 07/28/18 08:01 Last Admin: 01/28/18 09:08 Dose: 0.2 mg Omeprazole (Prilosec) 20 mg PO DAILY@0630 COUNTS INCLUDE 234 BEDS AT THE [facility] Stop: 07/28/18 06:31 Last Admin: 01/28/18 06:22 Dose: 20 mg Polysaccharide Iron Complex (Ferrex 150) 150 mg PO DAILY [place] Stop: 07/28/18 09:01 Last Admin: 01/28/18 09:08 Dose: 150 mg Laboratory Tests 01/27/18 01/28/18 01/28/18 04:02 08:49 08:49 Hgb 8.2 L Creatinine 2.99 H 2.76 H - Imaging and Cardiology Chest Xray: report reviewed Echo: report reviewed - EKG Interpretation EKG results cardiology: other (Telemetry reviewed with average HR previous 12 hours noted to be 91, a.fib.) Consult Discharge Plan - Plan Referrals: NONE,PCP [Primary Care Provider] -
[2018-01-28] MEDS: *HR* LORazepam 1 MG TABLET PO PRN (20:53)
[2018-01-28] MEDS: Gabapentin 100 MG CAPSULE PO SCH (20:53)
[2018-01-29 05:24] LABS: Calcium 9.1 mg/dL (8.6-10.3); Potassium 5.1 mEq/L (3.5-5.1)
--- NOTE | 2018-01-29 09:03 | Internal Med Progress Note ---
<Sonido Penaloza - Last Filed: 01/29/18 15:25> Date of Encounter: 01/29/18 Time of Encounter: 09:03 - Assessment and plan (1) Atrial fibrillation with RVR Current Visit: Yes Status: Acute Assessment and plan: Appreciate cardio consultation Per cardio recs: Amiodarone 200mg BID and Cardizem 60mg q8h. Currently rate controlled at 77-90 (2) Acute exacerbation of congestive heart failure Current Visit: Yes Status: Acute Assessment and plan: SOB worsened Strict I&Os Fluid status: +600mL today Slight improvement of renal function. However due to worsening shortness of breath, consulted nephrology who suggested trial of 40 mg IV Lasix. Qualifiers: Heart failure type: diastolic Qualified Code(s): I50.33 - Acute on chronic diastolic (congestive) heart failure (3) CKD (chronic kidney disease) stage 4, GFR 15-29 ml/min Current Visit: Yes Status: Acute Assessment and plan: Kidney functions improved at Cr 2.62 today Records from [place] from 12/24 and 12/25 revealed Creatinine 2.0 and 1.9, which may be closer to pt baseline Appreciate nephro consult. Per their recs: In the context of worsening CHF, trial dose of 40mg IV Lasix. Continue to follow renal functions closely. (4) DVT prophylaxis Current Visit: Yes Status: Acute Assessment and plan: on eliquis (5) Anemia Current Visit: Yes Status: Acute Assessment and plan: Iron studies revealed low iron levels, but normal transferrin. Likely due to CKD Qualifiers: Anemia type: due to chronic kidney disease Chronic kidney disease stage: stage 4 (severe) Qualified Code(s): N18.4 - Chronic kidney disease, stage 4 ( severe); D63.1 - Anemia in chronic kidney disease (6) Elevated troponin Current Visit: Yes Status: Resolved Assessment and plan: likely demand ischemia from afib with rvr (7) Atrial fibrillation Current Visit: Yes Status: Chronic Assessment and plan: As above Qualifiers: Atrial fibrillation type: chronic Qualified Code(s): I48.2 - Chronic atrial fibrillation - Time Spent With Patient Total time spent is greater than 50% in coordination of care (as documented) at patient's floor/unit and/or counseling patient: - Subjective Interval history: Ms. Wiley is an 87-year-old female, with a history of atrial fibrillation, CHF and CKD, who was admitted for shortness of breath and dyspnea. 01/24: During this encounter the patient was laying in bed in minor distress. Still complaining of shortness of breath, but stated it has improved slightly. Patient also states she still feels very "swollen" and warm. The patient is noted to be afebrile at this time. Patient complains of some chest tightness, but denies any chest pain. Also denies any abdominal pain, nausea, vomiting, or diarrhea. 01/25: Pt had an episode of SOB last night, but improved after receiving her [facility]. Pt sitting comfortably on the side of bed this AM eating breakfast. States she feels much better today compared to yesterday, and the chest tightness has improved, with no difficulty breathing. Denies any chest pain, abdominal pain, nausea, vomiting, or diarrhea. 01/26: No acute events overnight. Pt sitting comfortably in bed with no new complaints. Pt states she only feels SOB when she lays flat or if she gets up to walk. Able to speak in full sentences. Denies any chest pain, abdominal pain , nausea, vomiting, or diarrhea. 01/27: No acute events overnight. Pt sitting in bed eating breakfast. States she feels "ok". Only SOB when laying flat. Able to speak in full sentences. Denies any chest pain, abdominal pain, nausea, vomiting, diarrhea, or headache. 01/29: No acute events overnight. Pt sitting in bed comfortably. States she feels weak. Admits her SOB is somewhat worsened from the past couple days. Speaks in 5 -6 word groups. Gottlieb catheter removed yesterday. Denies any chest pain, abdominal pain, nausea, vomiting, diarrhea, dysuria, or headache. - Constitutional Vitals: Temp Pulse Resp BP Pulse Ox 97.6 F 89 18 117/77 90 01/29/18 07:11 01/29/18 07:11 01/29/18 07:11 01/29/18 07:11 01/29/18 07:11 General appearance: Present: A&O X 3, pleasant, no acute distress Exam: Head: Normocephalic, atraumatic Eyes: PERRL, EOMI, conjunctiva pink, sclera anicteric Neck: Supple, trachea midline, Lungs: Diminished breath sounds bilaterally. Able to speak in short sentences normally. Fine rales noted in lower lobes. No rales or wheezes appreciated. . Cardiac: Irregularly irregular rhythm. No clicks or rubs noted. GI: Abdomen soft, nontender, nondistended. Normoactive bowel sounds Extremities: Warm, radial pulses palpable and symmetrical. +2 pitting edema bilaterally. No cyanosis or calf tenderness. Neuro: Alert and oriented 3. No focal deficits. Normal speech. Skin: Warm, dry, and intact. Contusion on the right scapula. Internal Medicine: Result - Labs CBC & Chem 7: 01/28/18 08:49 01/29/18 04:21 Labs: BMP 01/28/18 01/29/18 08:49 04:21 Sodium 131 L 132 L Potassium 4.9 5.1 Chloride 100 100 Carbon Dioxide 24 23 BUN 72 H 76 H Creatinine 2.76 H 2.62 H Glucose 193 H 138 H Calcium 9.2 9.1 - ABG Interpretation ABG results: PT/INR, D-dimer PT 23.3 Seconds (9.4-12.1) H 01/23/18 23:24 - Impressions Impressions Chest X-Ray 01/28/18 10:14 IMPRESSION: Minimal improvement of mild interstitial edema. Persistent small bilateral pleural effusions. D/ / Merle Centeno MD / Merle Centeno MD Interpreting Provider: Merle Centeno MD Consult Discharge Plan - Plan Referrals: NONE,PCP [Primary Care Provider] - <Ortiz Bee - Last Filed: 01/29/18 17:52> Date of Encounter: 01/29/18 - Assessment and plan (1) Atrial fibrillation with RVR Current Visit: Yes Status: Acute (2) Acute exacerbation of congestive heart failure Current Visit: Yes Status: Acute Qualifiers: Heart failure type: diastolic Qualified Code(s): I50.33 - Acute on chronic diastolic (congestive) heart failure (3) DVT prophylaxis Current Visit: Yes Status: Acute (4) CKD (chronic kidney disease) stage 4, GFR 15-29 ml/min Current Visit: Yes Status: Acute (5) Anemia Current Visit: Yes Status: Acute Qualifiers: Anemia type: due to chronic kidney disease Chronic kidney disease stage: stage 4 (severe) Qualified Code(s): N18.4 - Chronic kidney disease, stage 4 ( severe); D63.1 - Anemia in chronic kidney disease (6) Elevated troponin Current Visit: Yes Status: Resolved (7) Atrial fibrillation Current Visit: Yes Status: Chronic Qualifiers: Atrial fibrillation type: chronic Qualified Code(s): I48.2 - Chronic atrial fibrillation - Time Spent With Patient Total time spent is greater than 50% in coordination of care (as documented) at patient's floor/unit and/or counseling patient: - Constitutional Vitals: Temp Pulse Resp BP Pulse Ox 97.2 F L 84 18 108/84 96 01/29/18 15:27 01/29/18 15:27 01/29/18 15:27 01/29/18 15:27 01/29/18 15:27 Internal Medicine: Result - Labs CBC & Chem 7: 01/28/18 08:49 01/29/18 04:21 Labs: BMP 01/29/18 04:21 Sodium 132 L Potassium 5.1 Chloride 100 Carbon Dioxide 23 BUN 76 H Creatinine 2.62 H Glucose 138 H Calcium 9.1 - ABG Interpretation ABG results: PT/INR, D-dimer PT 23.3 Seconds (9.4-12.1) H 01/23/18 23:24 - Attending Attestation I examined this patient and my medical decision-making was reviewed with the Resident Physician Dr. Penaloza. I agree with the documented findings, disposition and treatment plan as described except to the extent set forth below. Ms. Wiley is a 87 year old female with a relevant past medical history of CHF , atrial fibrillation, CKD, anxiety, depression who presented to [facility] with complaints of increased shortness of breath. Patient states was diagnosed with CHF and a.fib in November at outside facility. Pt was started on Amiodarone gtt and Cardizem PO. Her HR well controlled now. Pt still has some severe SOB and ALVAREZ. Denied any CP Gen: A. A. O x 3 Chest: Diminished BS b/l, crackles + Rales + Heart: S1S2+ Irregular rate and rythm a/p 1. Acute on chronic diastolic CHF exacerbation 2. Acute on chronic hypoxic resp failure started on Lasix cont close monitoring 3. Afib with RVR rate controlled now with Amiodarone and Cardizem on Eliquis for anti coag
[2018-01-29] MEDS: Apixaban 5 MG TABLET PO SCH ×2 (09:18→21:05)
[2018-01-29] MEDS: Multivit/Ca/Min/Fe/FA 1 TAB TABLET PO SCH (09:19)
[2018-01-29] MEDS: Iron Polysaccharide Complex 150 MG CAPSULE PO SCH (09:19)
[2018-01-29] MEDS: *HR* Amiodarone 200 MG TABLET PO SCH ×2 (09:19→21:02)
[2018-01-29] MEDS: FLUoxetine 20 MG CAPSULE PO SCH ×2 (09:19→21:01)
--- NOTE | 2018-01-29 10:22 | Nephrology Progress Note ---
Date of Encounter: 01/29/18 Time of Encounter: 10:01 - Assessment and Plan (1) BOOM (acute kidney injury) Current Visit: Yes Status: Acute Scr 2.62, improved from 2.76. GFR 17. Retroperitoneal US ordered yesterday. Urine NA < 10. Continue to avoid nephrotoxins and renal dose all medications. (2) CKD (chronic kidney disease) stage 4, GFR 15-29 ml/min Current Visit: Yes Status: Acute Baseline Scr 2.0 from [place]. Continue Strict I/O. (3) Congestive heart failure Current Visit: Yes Status: Chronic 40 mg IV lasix ordered for today. BMP and CBC ordered for tomorrow. Chest xray 8 with mild interstitial edema and auscultation of crackles with am examination. Qualifiers: Heart failure type: diastolic Heart failure chronicity: chronic Qualified Code(s): I50.32 - Chronic diastolic (congestive) heart failure (4) Hyperkalemia Current Visit: Yes Status: Acute (5) Hyperkalemia Current Visit: Yes Status: Acute K 5.1 today. Low potassium diet ordered. Subjective Principal diagnosis: CHF, a.fib RVR Interval history: Pt seen and examined. NAD, sitting up on BSC. Objective - Vital Signs Vital signs: Vital Signs Temp Pulse Resp BP Pulse Ox 01/29/18 07:11 97.6 F 89 18 117/77 90 01/29/18 04:43 97.6 F 86 18 104/70 100 01/29/18 00:58 96.8 F L 77 18 103/85 89 01/28/18 20:21 97.7 F 90 20 104/66 90 01/28/18 16:44 97.7 F 88 16 111/82 94 Intake and Output 01/28/18 01/29/18 01/29/18 23:59 07:59 15:59 Intake Total 0 / 0 0 / 0 Output Total 200 / 200 0 / 0 Balance -200 / -200 0 / 0 Intake: Oral 0 / 0 0 / 0 Output: Urine 200 / 200 0 / 0 Other: Stool Size Small Stool Consistency formed Stool Color Brown # Voids 0 0 Weight 92.3 kg Patient Weight 01/29/18 23:59 Weight 92.3 kg - General Appearance General appearance: Present: well-developed, well-nourished EENT: Present: ATNC, hearing intact, vision intact Neck: Present: supple Respiratory: Present: clear Additional Comments: fine crackles noted in bilateral lower lobes. Cardiology: Present: edema (+2 pitting edema.), normal S1, normal S2 Gastrointestinal: Present: normoactive bowel sounds, no tenderness, no guarding Integumentary: Present: no rash, warm and dry Neurologic: Present: alert and oriented x3 Psychiatric: Present: mood/affect appropriate - Lab 01/28/18 08:49 01/29/18 04:21 Most recent lab results Calcium 9.1 mg/dL (8.6-10.3) 01/29/18 04:21 Urine Creatinine 127 mg/dL 01/27/18 19:31 Urine Sodium < 10.0 mEq/L 01/27/18 19:31 Consult Discharge Plan - Plan Referrals: NONE,PCP [Primary Care Provider] -
[2018-01-29] MEDS ORDERED: Furosemide 40 MG/4 ML VIAL IVP ONE ×2 (10:25→18:00)
[2018-01-29] MEDS: Nitroglycerin 0.2 MG PATCH.TD24 TD SCH (10:28)
--- NOTE | 2018-01-29 14:33 | Cardiology Progress Note ---
Date of Encounter: 01/29/18 Time of Encounter: 14:00 Assessment and Plan (1) Atrial fibrillation with RVR Current Visit: Yes Status: Acute Per cardiology: -States was recently diagnosed with a.fib in November, has been on cardizem CD 240mg. -On eliquis 2.5mg BID for anticoagulation. -Average HR previous 12 hours noted to be 90, a.fib. -TTE from [place] 11/2017 reviewed with LVEF 60%, indeterminate diastolic function, moderate MR, moderate TR, mild PH, no segmental wall motion abnormalities noted. -Currently on cardizem 60mg Q8 hours, on amiodarone 200mg BID, recommended for one month. -Will continue to monitor. (2) CKD (chronic kidney disease) stage 4, GFR 15-29 ml/min Current Visit: Yes Status: Acute Per cardiology: -Creatinine today 2.62. -Labs reviewed from [facility] 11/2017 with creatinine 2. -Nephrology consulted. Appreciate recommendations. -Management per primary and nephrology service. (3) Anemia Current Visit: Yes Status: Acute Per cardiology: -Hemoglobin 8.2 -Denies active bleeding or blood loss. -On eliquis 2.5mg BID for anticoagulation. -Management per primary service. Qualifiers: Anemia type: due to chronic kidney disease Chronic kidney disease stage: stage 4 (severe) Qualified Code(s): N18.4 - Chronic kidney disease, stage 4 ( severe); D63.1 - Anemia in chronic kidney disease (4) Congestive heart failure Current Visit: Yes Status: Chronic Per cardiology: -Known diastolic CHF. -Reports increased shortness of breath on admission,O2 requirements increasing. Of note, states previously on O2 at 4LPM, this am was on 8LPM. -Repeat chest x-ray with minimal improvement of interstitial edema, persistent small bilateral pleural effusions. -Lower extremity edema noted, states baseline since November. -TTE as above with LVEF preserved. -Was given one time dose of lasix IV this am. -Net positive fluid balance of 600ml. -Strict i/os, daily weights, fluid restriction. -Agree with IV lasix given this am. -Consider additional lasix in am pending renal function. -CHF education reviewed at length with patient and family at bedside. -WIll continue to monitor. Qualifiers: Heart failure type: diastolic Heart failure chronicity: chronic Qualified Code(s): I50.32 - Chronic diastolic (congestive) heart failure (5) Elevated troponin Current Visit: Yes Status: Resolved Per cardiology: -Troponins 0.04 x3 in the setting of CKD, anemia, a.fib RVR. -Denies chest pain. -ECG with no acute ischemic changes. -Recent TTE as above with LVEF 60%, no segmental wall motion abnormalities. -DO not suspect NSTEMI, suspect demand ischemia related to above. NO cardiac rehab consult warranted. Discussion w patient/family: The assessment and plan as outlined above was discussed with the patient and family who expressed understanding and agreement. All questions were answered. Thank you for involving us in the care of your patient. Please call with any questions. Discussed and reviewed with Subjective Principal diagnosis: CHF, a.fib RVR Interval history: Patient sitting in chair at time of assessment. Patient states shortness of breath is improving. Family at bedside. Objective Vital Signs, Last 4 Hours Temp Pulse Resp BP Pulse Ox 01/29/18 11:27 97.4 F L 85 17 97/75 100 General: Conversant, No Apparent Distress HEENT: Atraumatic, Normocephaly, Mucus Membranes Moist Neck: No JVD, Normal carotid pulses Cardiac: Reg Rate and Rhythm, Normal S1 and S2, No Murmur Lungs: Other (RLL lung sounds diminished) Neuro: Alert and responsive, No focal deficits noted Abdomen: Soft, Non-Tender Skin: No rashes noted on visualized skin Musculoskeletal: No Chest Wall Tenderness Extremities: No Clubbing, No Cyanosis, Normal Pulses, Other (1+ bilateral lower extremity pitting edema noted. ) Results 01/28/18 08:49 01/29/18 04:21 Lab Results Impressions Chest X-Ray 01/28/18 10:14 IMPRESSION: Minimal improvement of mild interstitial edema. Persistent small bilateral pleural effusions. D/ / Merle Centeno MD / Merle Centeno MD Interpreting Provider: Merle Centeno MD Active Medications Amiodarone HCl (Cordarone) 200 mg PO BID [facility] Stop: 07/30/18 09:01 Last Admin: 01/29/18 09:19 Dose: 200 mg Apixaban (Eliquis) 2.5 mg PO BID [facility] Stop: 07/26/18 09:01 Last Admin: 01/29/18 09:18 Dose: 2.5 mg Diltiazem HCl (Cardizem) 60 mg PO Q8HR [facility] Stop: 07/29/18 16:01 Last Admin: 01/29/18 09:19 Dose: 60 mg Fluoxetine HCl (Prozac) 20 mg PO BID [facility] Stop: 07/27/18 21:01 Last Admin: 01/29/18 09:19 Dose: 20 mg Gabapentin (Neurontin) 100 mg PO HS [facility] Stop: 07/29/18 21:01 Last Admin: 01/28/18 20:53 Dose: 100 mg Melatonin (Melatonin) 3 mg PO HS PRN PRN Reason: Insomnia Stop: 07/31/18 21:01 Multivitamins/Calcium (Thera M Plus) 1 tab PO DAILY [facility] Stop: 07/28/18 09:01 Last Admin: 01/29/18 09:19 Dose: 1 tab Naloxone HCl (Narcan) 0.4 mg IVP Q2MIN PRN PRN Reason: SEE COMMENTS Stop: 07/26/18 02:46 Nitroglycerin (Nitroglycerin) 0.2 mg TD 0800 [facility] Stop: 07/28/18 08:01 Last Admin: 01/29/18 10:28 Dose: 0.2 mg Omeprazole (Prilosec) 20 mg PO DAILY@0630 [facility] Stop: 07/28/18 06:31 Last Admin: 01/29/18 06:14 Dose: 20 mg Polysaccharide Iron Complex (Ferrex 150) 150 mg PO DAILY [facility] Stop: 07/28/18 09:01 Last Admin: 01/29/18 09:19 Dose: 150 mg Laboratory Tests 01/28/18 01/28/18 01/29/18 08:49 08:49 04:21 Hgb 8.2 L Creatinine 2.76 H 2.62 H - Imaging and Cardiology Chest Xray: report reviewed Echo: report reviewed (From [place]) - EKG Interpretation EKG results cardiology: other (Telemetry reviewed with average HR previous 12 hours noted to be 90, a.fib.) Consult Discharge Plan - Plan Referrals: NONE,PCP [Primary Care Provider] -
[2018-01-29] MEDS ORDERED: Melatonin 3 MG TABLET PO PRN (21:00)
[2018-01-29] MEDS: Gabapentin 100 MG CAPSULE PO SCH (21:02)
[2018-01-30 05:11] LABS: Basophils % 0.1 %; Eosinophils % 0.2 %; Hematocrit 25.6 % (35.3-44.9); Hemoglobin 7.8 g/dL (11.5-15.4); Immature Granulocytes % 0.7 % (0-4); Lymphocytes # 0.4 K/mcL (0.6-4.6); Lymphocytes % 4.6 %; Mean Corpuscular HGB Conc 30.5 g/dL (31.6-35.5); Mean Corpuscular Hemoglobin 24.8 pg (28.0-33.3); Mean Corpuscular Volume 81.5 fL (83.0-100.0); Mean Platelet Volume 10.7 fL (9.4-12.4); Monocytes # 1.3 K/mcL (0.0-1.3); Monocytes % 14.2 %; Neutrophils # 7.3 K/mcL (1.6-8.9); Platelet Count 361 K/mcL (140-400); Red Blood Count 3.14 M/mcL (3.82-4.97); Red Cell Distribution Width 15.9 % (11.5-14.5); Segmented Neutrophils % 80.2 %
[2018-01-30 05:35] LABS: Potassium 4.7 mEq/L (3.5-5.1)
[2018-01-30] MEDS: Apixaban 5 MG TABLET PO SCH ×2 (07:41→22:28)
[2018-01-30] MEDS: Iron Polysaccharide Complex 150 MG CAPSULE PO SCH (07:43)
[2018-01-30] MEDS: Multivit/Ca/Min/Fe/FA 1 TAB TABLET PO SCH (07:43)
[2018-01-30] MEDS: FLUoxetine 20 MG CAPSULE PO SCH ×2 (07:43→22:29)
[2018-01-30] MEDS: *HR* Amiodarone 200 MG TABLET PO SCH ×2 (07:43→22:28)
--- NOTE | 2018-01-30 09:21 | Internal Med Progress Note ---
<Sonido Penaloza - Last Filed: 01/30/18 16:07> Date of Encounter: 01/30/18 Time of Encounter: 09:21 - Assessment and plan (1) Atrial fibrillation with RVR Current Visit: Yes Status: Acute Assessment and plan: Appreciate cardio consultation Per cardio recs: Amiodarone 200mg BID and Cardizem 60mg q8h. Currently rate controlled at 77-90 (2) Acute exacerbation of congestive heart failure Current Visit: Yes Status: Acute Assessment and plan: SOB imroved Strict I&Os Fluid status: +451.8mL today 40mg IV Lasix as kidney functions allow. Creatinine improved today at 2.31 from 2.62 yesterday. Qualifiers: Heart failure type: diastolic Qualified Code(s): I50.33 - Acute on chronic diastolic (congestive) heart failure (3) CKD (chronic kidney disease) stage 4, GFR 15-29 ml/min Current Visit: Yes Status: Acute Assessment and plan: Kidney functions improved at Cr 2.31 today Records from [place] from 12/24 and 12/25 revealed Creatinine 2.0 and 1.9, which may be closer to pt baseline Appreciate nephro consult. Per their recs: 40 IV Lasix Continue to follow renal functions closely. (4) DVT prophylaxis Current Visit: Yes Status: Acute Assessment and plan: on eliquis (5) Anemia Current Visit: Yes Status: Acute Assessment and plan: Iron studies revealed low iron levels, but normal transferrin. Likely due to CKD Qualifiers: Anemia type: due to chronic kidney disease Chronic kidney disease stage: stage 4 (severe) Qualified Code(s): N18.4 - Chronic kidney disease, stage 4 ( severe); D63.1 - Anemia in chronic kidney disease (6) Elevated troponin Current Visit: Yes Status: Resolved Assessment and plan: likely demand ischemia from afib with rvr (7) Atrial fibrillation Current Visit: Yes Status: Chronic Assessment and plan: As above Qualifiers: Atrial fibrillation type: chronic Qualified Code(s): I48.2 - Chronic atrial fibrillation - Time Spent With Patient Total time spent is greater than 50% in coordination of care (as documented) at patient's floor/unit and/or counseling patient: - Subjective Interval history: Ms. Wiley is an 87-year-old female, with a history of atrial fibrillation, CHF and CKD, who was admitted for shortness of breath and dyspnea. 01/24: During this encounter the patient was laying in bed in minor distress. Still complaining of shortness of breath, but stated it has improved slightly. Patient also states she still feels very "swollen" and warm. The patient is noted to be afebrile at this time. Patient complains of some chest tightness, but denies any chest pain. Also denies any abdominal pain, nausea, vomiting, or diarrhea. 01/25: Pt had an episode of SOB last night, but improved after receiving her home [facility]. Pt sitting comfortably on the side of bed this AM eating breakfast. States she feels much better today compared to yesterday, and the chest tightness has improved, with no difficulty breathing. Denies any chest pain, abdominal pain, nausea, vomiting, or diarrhea. 01/26: No acute events overnight. Pt sitting comfortably in bed with no new complaints. Pt states she only feels SOB when she lays flat or if she gets up to walk. Able to speak in full sentences. Denies any chest pain, abdominal pain , nausea, vomiting, or diarrhea. 01/27: No acute events overnight. Pt sitting in bed eating breakfast. States she feels "ok". Only SOB when laying flat. Able to speak in full sentences. Denies any chest pain, abdominal pain, nausea, vomiting, diarrhea, or headache. 01/29: No acute events overnight. Pt sitting in bed comfortably. States she feels weak. Admits her SOB is somewhat worsened from the past couple days. Speaks in 5 -6 word groups. Gottlieb catheter removed yesterday. Denies any chest pain, abdominal pain, nausea, vomiting, diarrhea, dysuria, or headache. 01/30: No acute events overnight. Pt sitting comfortably in chair. States she feels "pretty good". States her SOB has improved while at rest, laying in bed, and while ambulating to the toilet. States her LE edema has improved bilaterally. Able to speak in full sentences and eat entire breakfast. Still feels weak. Admits to some abdominal tightness. Denies chest pain, abdominal pain, nausea, vomiting, diarrhea, dysuria, headache, numbness, or tingling. - Constitutional Vitals: Temp Pulse Resp BP Pulse Ox 97 F L 104 17 106/86 99 01/30/18 07:15 01/30/18 07:15 01/30/18 07:15 01/30/18 07:15 01/30/18 07:57 General appearance: Present: A&O X 3, pleasant, no acute distress Exam: Head: Normocephalic, atraumatic Eyes: PERRL, EOMI, conjunctiva pink, sclera anicteric Neck: Supple, trachea midline, no lymphadenopathy Lungs: Fine crackles appreciated in lower lobes bilaterally. Upper lobes clear. Noted improvement in overall air movement. Nonlabored breathing. No wheezes or rhonchi noted. Cardiac: Irregularly irregular. No murmurs, clicks, or rubs noted. GI: Abdomen soft, nontender. Distended. Normoactive bowel sounds Extremities: Warm, radial pulses palpable and symmetrical. +1 pitting edema in bilateral LEs. No cyanosis or calf tenderness. Neuro: Alert and oriented 3. No focal deficits. Normal speech. Skin: Warm, dry, and intact. Contusion noted on right scapula (old). Internal Medicine: Result - Labs CBC & Chem 7: 01/30/18 04:13 01/30/18 04:13 Labs: Short CBC 01/30/18 Range/Units 04:13 WBC 9.1 (4.3-11.1) K/mcL Hgb 7.8 L (11.5-15.4) g/dL Hct 25.6 L (35.3-44.9) % Plt Count 361 (140-400) K/mcL Neutrophils # 7.3 (1.6-8.9) K/mcL BMP 01/30/18 04:13 Sodium 135 L Potassium 4.7 Chloride 102 Carbon Dioxide 24 BUN 73 H Creatinine 2.31 H Glucose 133 H Calcium 9.0 - ABG Interpretation ABG results: PT/INR, D-dimer PT 23.3 Seconds (9.4-12.1) H 01/23/18 23:24 - Impressions Impressions Retroperitoneum Ultrasound 01/29/18 17:00 IMPRESSION: Unremarkable ultrasound of the kidneys and urinary bladder. Right pleural effusion. D/ / Thomas Abrams MD / Thomas Abrams MD Interpreting Provider: Thomas Abrams MD Consult Discharge Plan - Plan Referrals: NONE,PCP [Primary Care Provider] - <Ortiz Bee - Last Filed: 01/30/18 16:16> Date of Encounter: 01/30/18 - Assessment and plan (1) Atrial fibrillation with RVR Current Visit: Yes Status: Acute (2) Acute exacerbation of congestive heart failure Current Visit: Yes Status: Acute Qualifiers: Heart failure type: diastolic Qualified Code(s): I50.33 - Acute on chronic diastolic (congestive) heart failure (3) DVT prophylaxis Current Visit: Yes Status: Acute (4) CKD (chronic kidney disease) stage 4, GFR 15-29 ml/min Current Visit: Yes Status: Acute (5) Anemia Current Visit: Yes Status: Acute Qualifiers: Anemia type: due to chronic kidney disease Chronic kidney disease stage: stage 4 (severe) Qualified Code(s): N18.4 - Chronic kidney disease, stage 4 ( severe); D63.1 - Anemia in chronic kidney disease (6) Elevated troponin Current Visit: Yes Status: Resolved (7) Atrial fibrillation Current Visit: Yes Status: Chronic Qualifiers: Atrial fibrillation type: chronic Qualified Code(s): I48.2 - Chronic atrial fibrillation - Time Spent With Patient Total time spent is greater than 50% in coordination of care (as documented) at patient's floor/unit and/or counseling patient: - Constitutional Vitals: Temp Pulse Resp BP Pulse Ox 97.7 F 109 18 108/76 99 01/30/18 15:53 01/30/18 15:53 01/30/18 15:53 01/30/18 15:53 01/30/18 15:53 Internal Medicine: Result - Labs CBC & Chem 7: 01/30/18 04:13 01/30/18 04:13 Labs: Short CBC 01/30/18 Range/Units 04:13 WBC 9.1 (4.3-11.1) K/mcL Hgb 7.8 L (11.5-15.4) g/dL Hct 25.6 L (35.3-44.9) % Plt Count 361 (140-400) K/mcL Neutrophils # 7.3 (1.6-8.9) K/mcL BMP 01/30/18 04:13 Sodium 135 L Potassium 4.7 Chloride 102 Carbon Dioxide 24 BUN 73 H Creatinine 2.31 H Glucose 133 H Calcium 9.0 - ABG Interpretation ABG results: PT/INR, D-dimer PT 23.3 Seconds (9.4-12.1) H 01/23/18 23:24 - Impressions Impressions Retroperitoneum Ultrasound 01/29/18 17:00 IMPRESSION: Unremarkable ultrasound of the kidneys and urinary bladder. Right pleural effusion. D/ / Thomas Abrams MD / Thomas Abrams MD Interpreting Provider: Thomas Abrams MD - Attending Attestation I examined this patient and my medical decision-making was reviewed with the Resident Physician Dr. Penaloza. I agree with the documented findings, disposition and treatment plan as described except to the extent set forth below. Ms. Wiley is a 87 year old female with a relevant past medical history of CHF , atrial fibrillation, CKD, anxiety, depression who presented to [facility] with complaints of increased shortness of breath. Patient states was diagnosed with CHF and a.fib in November at outside facility. Pt was started on Amiodarone and Cardizem PO. Her HR well controlled now. Pt still has some severe SOB and ALVAREZ. Denied any CP Gen: A. A. O x 3 Chest: Diminished BS b/l, crackles + Rales + Heart: S1S2+ Irregular rate and rythm a/p 1. Acute on chronic diastolic CHF exacerbation 2. Acute on chronic hypoxic resp failure Cont Lasix cont close monitoring 3. Afib with RVR rate controlled now with Amiodarone and Cardizem on Eliquis for anti coag 4. BOOM with CKD-3 improving
[2018-01-30] MEDS ORDERED: Furosemide 40 MG/4 ML VIAL IVP ONE ×2 (10:09→20:00)
--- NOTE | 2018-01-30 10:14 | Nephrology Progress Note ---
Date of Encounter: 01/30/18 Time of Encounter: 10:12 - Assessment and Plan (1) BOOM (acute kidney injury) Current Visit: Yes Status: Acute Scr 2.31 improved from 2.62. GFR 20, improved. Retroperitoneal US unremarkable. Continue to avoid nephrotoxins and renal dose all medications. (2) CKD (chronic kidney disease) stage 4, GFR 15-29 ml/min Current Visit: Yes Status: Acute Baseline Scr 2.0 from [place]. Continue Strict I/O. (3) Congestive heart failure Current Visit: Yes Status: Chronic 40 mg IV lasix ordered for today. BMP and CBC ordered for tomorrow. Qualifiers: Heart failure type: diastolic Heart failure chronicity: chronic Qualified Code(s): I50.32 - Chronic diastolic (congestive) heart failure (4) Hyperkalemia Current Visit: Yes Status: Acute K 4.7 today. Low potassium diet ordered. Subjective Principal diagnosis: CHF, a.fib RVR Interval history: Pt seen and examined. NAD, sitting up in chair. Objective - Vital Signs Vital signs: Vital Signs Temp Pulse Resp BP Pulse Ox 01/30/18 07:57 99 01/30/18 07:15 97 F L 104 17 106/86 99 01/30/18 05:55 100 01/30/18 04:57 96.9 F L 96 18 100/78 100 01/30/18 01:12 97.7 F 86 18 113/67 95 01/29/18 21:32 97.6 F 110 17 117/80 97 01/29/18 19:00 90 20 122/98 95 01/29/18 15:27 97.2 F L 84 18 108/84 96 01/29/18 11:27 97.4 F L 85 17 97/75 100 Intake and Output 01/29/18 01/30/18 01/30/18 23:59 07:59 15:59 Intake Total 300 / 300 360 / 360 Output Total 500 / 500 300 / 300 Balance -500 / -500 0 / 0 360 / 360 Intake: Oral 300 / 300 360 / 360 Output: Urine 500 / 500 300 / 300 Other: Meal Breakfast Percent of Meal Consumed 100% # Voids 0 Weight 93.5 kg Patient Weight 01/30/18 23:59 Weight 93.5 kg - General Appearance General appearance: Present: well-developed, well-nourished EENT: Present: ATNC, hearing intact, vision intact Neck: Present: supple Respiratory: Present: clear Cardiology: Present: edema (Trace bilateral lower extremity edema.), normal S1, normal S2 Gastrointestinal: Present: normoactive bowel sounds, no tenderness, no guarding Integumentary: Present: no rash, warm and dry Neurologic: Present: alert and oriented x3 Psychiatric: Present: mood/affect appropriate, cooperative - Lab 01/30/18 04:13 01/30/18 04:13 Most recent lab results Calcium 9.0 mg/dL (8.6-10.3) 01/30/18 04:13 Urine Creatinine 127 mg/dL 01/27/18 19:31 Urine Sodium < 10.0 mEq/L 01/27/18 19:31 Consult Discharge Plan - Plan Referrals: NONE,PCP [Primary Care Provider] -
--- NOTE | 2018-01-30 12:23 | Cardiology Progress Note ---
Date of Encounter: 01/30/18 Time of Encounter: 09:45 Assessment and Plan (1) Atrial fibrillation with RVR Current Visit: Yes Status: Acute Per cardiology: -States was recently diagnosed with a.fib in November, has been on cardizem CD 240mg. -On eliquis 2.5mg BID for anticoagulation. -Average HR previous 12 hours noted to be 98, a.fib. -TTE from [place] 11/2017 reviewed with LVEF 60%, indeterminate diastolic function, moderate MR, moderate TR, mild PH, no segmental wall motion abnormalities noted. -Currently on cardizem 60mg Q8 hours, on amiodarone 200mg BID, recommended for one month. -Cardiology will sign off and recommend pateint follow with EP/cardiology in [place]. (2) CKD (chronic kidney disease) stage 4, GFR 15-29 ml/min Current Visit: Yes Status: Acute Per cardiology: -Labs reviewed from [facility] 11/2017 with creatinine 2. -Nephrology consulted. Appreciate recommendations. -Management per primary and nephrology service. (3) Anemia Current Visit: Yes Status: Acute Per cardiology: -Denies active bleeding or blood loss. -On eliquis 2.5mg BID for anticoagulation. -Management per primary service. Qualifiers: Anemia type: due to chronic kidney disease Chronic kidney disease stage: stage 4 (severe) Qualified Code(s): N18.4 - Chronic kidney disease, stage 4 ( severe); D63.1 - Anemia in chronic kidney disease (4) Congestive heart failure Current Visit: Yes Status: Acute Per cardiology: -Known diastolic CHF. -Was given IV lasix x1 yesterday. GIven another dose today, diureses being managed by nephrology -O2 requirements improving. -Strict i/os, daily weights, fluid restriction. -Agree with IV lasix given this am. -CHF education reviewed at length with patient and family at bedside. -CArdiology will sign off. Recommend close outpatient follow up with cardiology in [place]. Qualifiers: Heart failure type: diastolic Heart failure chronicity: chronic Qualified Code(s): I50.32 - Chronic diastolic (congestive) heart failure (5) Elevated troponin Current Visit: Yes Status: Resolved Per cardiology: -Troponins 0.04 x3 in the setting of CKD, anemia, a.fib RVR. -Denies chest pain. -ECG with no acute ischemic changes. -Recent TTE as above with LVEF 60%, no segmental wall motion abnormalities. -DO not suspect NSTEMI, suspect demand ischemia related to above. NO cardiac rehab consult warranted. Discussion w patient/family: The assessment and plan as outlined above was discussed with the patient who expressed understanding and agreement. All questions were answered. Thank you for involving us in the care of your patient. Please call with any questions. Discussed and reviewed with Subjective Principal diagnosis: CHF, a.fib RVR Interval history: Patient sitting in chair at time of assessment. Patient states shortness of breath is improving. Objective Vital Signs, Last 4 Hours Temp Pulse Resp BP Pulse Ox 01/30/18 11:05 97.5 F L 98 18 102/74 100 General: Conversant, No Apparent Distress HEENT: Atraumatic, Normocephaly, Mucus Membranes Moist Neck: No JVD, Normal carotid pulses Cardiac: Normal S1 and S2, No Murmur, Other (Irregularly irregular ) Lungs: Normal Breath Sounds, No Wheeze, Rales, Rhonchi Neuro: Alert and responsive, No focal deficits noted Abdomen: Soft, Non-Tender Skin: No rashes noted on visualized skin Musculoskeletal: No Chest Wall Tenderness Extremities: No Clubbing, No Cyanosis, Normal Pulses, Other (MOderate lower extremity edema ntoed. ) Results 01/30/18 04:13 01/30/18 04:13 Lab Results Impressions Retroperitoneum Ultrasound 01/29/18 17:00 IMPRESSION: Unremarkable ultrasound of the kidneys and urinary bladder. Right pleural effusion. D/ / Thomas Abrams MD / Thomas Abrams MD Interpreting Provider: Thomas Abrams MD Active Medications Amiodarone HCl (Cordarone) 200 mg PO BID [facility] Stop: 07/30/18 09:01 Last Admin: 01/30/18 07:43 Dose: 200 mg Apixaban (Eliquis) 2.5 mg PO BID [facility] Stop: 07/26/18 09:01 Last Admin: 01/30/18 07:41 Dose: 2.5 mg Diltiazem HCl (Cardizem) 60 mg PO Q8HR [facility] Stop: 07/29/18 16:01 Last Admin: 01/30/18 07:43 Dose: 60 mg Fluoxetine HCl (Prozac) 20 mg PO BID [facility] Stop: 07/27/18 21:01 Last Admin: 01/30/18 07:43 Dose: 20 mg Furosemide (Lasix) 40 mg IVP ONCE ONE Stop: 01/30/18 20:01 Gabapentin (Neurontin) 100 mg PO HS [facility] Stop: 07/29/18 21:01 Last Admin: 01/29/18 21:02 Dose: 100 mg Guaifenesin (Mucinex) 600 mg PO BID PRN PRN Reason: Congestion Stop: 08/01/18 10:49 Lorazepam (Ativan) 1 mg PO HS [facility] Stop: 08/01/18 21:01 Melatonin (Melatonin) 3 mg PO HS PRN PRN Reason: Insomnia Stop: 07/31/18 21:01 Last Admin: 01/30/18 00:36 Dose: 3 mg Multivitamins/Calcium (Thera M Plus) 1 tab PO DAILY [facility] Stop: 07/28/18 09:01 Last Admin: 01/30/18 07:43 Dose: 1 tab Naloxone HCl (Narcan) 0.4 mg IVP Q2MIN PRN PRN Reason: SEE COMMENTS Stop: 07/26/18 02:46 Omeprazole (Prilosec) 20 mg PO DAILY@0630 [facility] Stop: 07/28/18 06:31 Last Admin: 01/30/18 05:52 Dose: 20 mg Polysaccharide Iron Complex (Ferrex 150) 150 mg PO DAILY [facility] Stop: 07/28/18 09:01 Last Admin: 01/30/18 07:43 Dose: 150 mg Laboratory Tests 01/30/18 01/30/18 04:13 04:13 Hgb 7.8 L Creatinine 2.31 H - Imaging and Cardiology Chest Xray: report reviewed Echo: report reviewed - EKG Interpretation EKG results cardiology: other (Telemetry reviewed with average HR previous 12 hours noted to be 98, a.fib. PVCs noted.) Consult Discharge Plan - Plan Referrals: NONE,PCP [Primary Care Provider] -
[2018-01-30] MEDS: Gabapentin 100 MG CAPSULE PO SCH (22:28)
[2018-01-30] MEDS: *HR* LORazepam 1 MG TABLET PO SCH (22:29)
[2018-01-31 05:38] LABS: Basophils % 0.1 %; Eosinophils % 0.4 %; Hematocrit 25.3 % (35.3-44.9); Hemoglobin 7.7 g/dL (11.5-15.4); Immature Granulocytes % 0.6 % (0-4); Lymphocytes # 0.4 K/mcL (0.6-4.6); Lymphocytes % 4.3 %; Mean Corpuscular HGB Conc 30.4 g/dL (31.6-35.5); Mean Corpuscular Hemoglobin 24.5 pg (28.0-33.3); Mean Corpuscular Volume 80.6 fL (83.0-100.0); Mean Platelet Volume 10.6 fL (9.4-12.4); Monocytes # 1.2 K/mcL (0.0-1.3); Monocytes % 14.8 %; Neutrophils # 6.6 K/mcL (1.6-8.9); Platelet Count 376 K/mcL (140-400); Red Blood Count 3.14 M/mcL (3.82-4.97); Red Cell Distribution Width 15.9 % (11.5-14.5); Segmented Neutrophils % 79.8 %
[2018-01-31 05:56] LABS: Potassium 3.8 mEq/L (3.5-5.1)
--- NOTE | 2018-01-31 08:36 | Internal Med Progress Note ---
Date of Encounter: 01/31/18 Time of Encounter: 08:36 - Assessment and plan (1) Atrial fibrillation with RVR Current Visit: Yes Status: Acute (2) Acute exacerbation of congestive heart failure Current Visit: Yes Status: Acute Qualifiers: Heart failure type: diastolic Qualified Code(s): I50.33 - Acute on chronic diastolic (congestive) heart failure (3) CKD (chronic kidney disease) stage 4, GFR 15-29 ml/min Current Visit: Yes Status: Acute (4) DVT prophylaxis Current Visit: Yes Status: Acute (5) Anemia Current Visit: Yes Status: Acute Qualifiers: Anemia type: due to chronic kidney disease Chronic kidney disease stage: stage 4 (severe) Qualified Code(s): N18.4 - Chronic kidney disease, stage 4 ( severe); D63.1 - Anemia in chronic kidney disease (6) Elevated troponin Current Visit: Yes Status: Resolved (7) Atrial fibrillation Current Visit: Yes Status: Chronic Qualifiers: Atrial fibrillation type: chronic Qualified Code(s): I48.2 - Chronic atrial fibrillation - Time Spent With Patient Total time spent is greater than 50% in coordination of care (as documented) at patient's floor/unit and/or counseling patient: - Subjective Interval history: Ms. Wiley is an 87-year-old female, with a history of atrial fibrillation, CHF and CKD, who was admitted for shortness of breath and dyspnea. 01/24: During this encounter the patient was laying in bed in minor distress. Still complaining of shortness of breath, but stated it has improved slightly. Patient also states she still feels very "swollen" and warm. The patient is noted to be afebrile at this time. Patient complains of some chest tightness, but denies any chest pain. Also denies any abdominal pain, nausea, vomiting, or diarrhea. 5: Pt had an episode of SOB last night, but improved after receiving her home [facility]. Pt sitting comfortably on the side of bed this AM eating breakfast. States she feels much better today compared to yesterday, and the chest tightness has improved, with no difficulty breathing. Denies any chest pain, abdominal pain, nausea, vomiting, or diarrhea. 7/6: No acute events overnight. Pt sitting comfortably in bed with no new complaints. Pt states she only feels SOB when she lays flat or if she gets up to walk. Able to speak in full sentences. Denies any chest pain, abdominal pain , nausea, vomiting, or diarrhea. 01/27: No acute events overnight. Pt sitting in bed eating breakfast. States she feels "ok". Only SOB when laying flat. Able to speak in full sentences. Denies any chest pain, abdominal pain, nausea, vomiting, diarrhea, or headache. 01/29: No acute events overnight. Pt sitting in bed comfortably. States she feels weak. Admits her SOB is somewhat worsened from the past couple days. Speaks in 5 -6 word groups. Gottlieb catheter removed yesterday. Denies any chest pain, abdominal pain, nausea, vomiting, diarrhea, dysuria, or headache. 01/30: No acute events overnight. Pt sitting comfortably in chair. States she feels "pretty good". States her SOB has improved while at rest, laying in bed, and while ambulating to the toilet. States her LE edema has improved bilaterally. Able to speak in full sentences and eat entire breakfast. Still feels weak. Admits to some abdominal tightness. Denies chest pain, abdominal pain, nausea, vomiting, diarrhea, dysuria, headache, numbness, or tingling. - Constitutional Vitals: Temp Pulse Resp BP Pulse Ox 97.5 F L 88 15 110/80 92 01/31/18 07:24 01/31/18 07:24 01/31/18 07:24 01/31/18 07:24 01/31/18 07:24 General appearance: Present: A&O X 3, pleasant, no acute distress Internal Medicine: Result - Labs CBC & Chem 7: 01/31/18 05:02 01/31/18 05:02 Labs: Short CBC 01/31/18 Range/Units 05:02 WBC 8.3 (4.3-11.1) K/mcL Hgb 7.7 L (11.5-15.4) g/dL Hct 25.3 L (35.3-44.9) % Plt Count 376 (140-400) K/mcL Neutrophils # 6.6 (1.6-8.9) K/mcL BMP 01/31/18 05:02 Sodium 139 Potassium 3.8 Chloride 103 Carbon Dioxide 24 BUN 69 H Creatinine 2.14 H Glucose 129 H Calcium 9.0 - ABG Interpretation ABG results: PT/INR, D-dimer PT 23.3 Seconds (9.4-12.1) H 01/23/18 23:24 Consult Discharge Plan - Plan Referrals: NONE,PCP [Primary Care Provider] -
--- NOTE | 2018-01-31 09:06 | Discharge Summary ---
<Sonido Penaloza - Last Filed: 02/01/18 14:35> - NOTES TO OUTPATIENT PROVIDER Notes to Outpatient Provider: Ms. Wiley was admitted on 01/24 for Abif with RVR. Cardiology recommended Amiodarone 200mg BID and Cardizem ER 240 for a total of 30 days. At discharge she is day 12/20. Her hospital stay was complicated by CHF exacerbation and acute on chronic kidney disease. Discharged on Lasix 40mg BID. Follow up with PCP for BMP check in 1 week, follow up with Cardiology and Nephrology for afib, CHF, and CKD management. Date of Encounter: 02/01/18 Time of Encounter: 09:00 - Discharge Diagnosis (1) Atrial fibrillation with RVR Priority: Primary Status: Acute Assessment and Plan: Currently rate controlled at 80s-90s Amiodarone 200mg BID and Cardizem ER 240 day 12/20 Follow up with cardiology in [place] after discharge (2) Acute exacerbation of congestive heart failure Priority: Primary Status: Acute Assessment and Plan: SOB imroved on 3 lmp Fluid restriction diet of 1500mL and low salt diet discussed with patient Fluid status: +131.8mL today 40mg Lasix BID po Follow up with cardiology in [place] on discharge Qualifiers: Heart failure type: diastolic Qualified Code(s): I50.33 - Acute on chronic diastolic (congestive) heart failure (3) CKD (chronic kidney disease) stage 4, GFR 15-29 ml/min Priority: Secondary Status: Acute Assessment and Plan: Kidney functions improved at Cr 1.99 today Records from [place] from 12/24 and 12/25 revealed Creatinine 2.0 and 1.9, which may be closer to pt baseline 40mg Lasix BID po Follow up with nephrology in [place] after discharge (4) Anemia Priority: Secondary Status: Acute Assessment and Plan: Iron studies revealed low iron levels, but normal transferrin. Likely due to CKD Qualifiers: Anemia type: due to chronic kidney disease Chronic kidney disease stage: stage 4 (severe) Qualified Code(s): N18.4 - Chronic kidney disease, stage 4 ( severe); D63.1 - Anemia in chronic kidney disease (5) Elevated troponin Priority: Secondary Status: Resolved Assessment and Plan: likely demand ischemia from afib with rvr Hospital course: Ms. Wiley is a 87 year old female Discharge discussed with: patient, family, nurse, social work - Time Spent with Patient Total time spent providing and/or coordinating discharge services: - Discharge Medications Prescriptions: Amiodarone [Cordarone] 200 mg PO BID 28 Days #56 tablet Apixaban [Eliquis] 2.5 mg PO BID 30 Days #60 tablet Diltiazem HCl [Diltiazem 24Hr Cd] 240 mg PO DAILY #28 cap.er.24h LORazepam [Ativan] 1 mg PO HS 10 Days #10 tablet Home Medications: FLUoxetine HCl [Sarafem] 20 mg PO BID 01/24/18 [History] Furosemide [Lasix] 40 mg PO DAILY 01/24/18 [History] Gabapentin [Neurontin] 300 mg PO HS 01/24/18 [History] Iron Polysaccharide Complex [Ferric X-150] 150 mg PO DAILY 01/24/18 [History] Multivit-Min/FA/Lycopen/Lutein [Centrum Silver Tablet] 1 each PO DAILY 01/24/18 [History] Pantoprazole Sodium [Protonix] 40 mg PO DAILY 01/24/18 [History] Potassium Chloride [Klor-Con Sprinkle] 20 meq PO BID 01/24/18 [History] Spironolactone [Aldactone] 12.5 mg PO DAILY 01/24/18 [History] Nitroglycerin 0.2 mg TD DAILY 01/25/18 [History] Amiodarone [Cordarone] 200 mg PO BID 28 Days #56 tablet 01/31/18 [Rx] Diltiazem HCl [Diltiazem 24Hr Cd] 240 mg PO DAILY #28 cap.er.24h 01/31/18 [Rx] Apixaban [Eliquis] 2.5 mg PO BID 30 Days #60 tablet 02/01/18 [Rx] LORazepam [Ativan] 1 mg PO HS 10 Days #10 tablet 02/01/18 [Rx] Allergies/Adverse Reactions: 3 Allergy/AdvReac Type Severity Reaction Status Date / Time No Known Allergies Allergy Verified 01/25/18 08:26 Date of admission: 01/24/18 10:47 Primary care physician: PCP NONE Consults: 01/24/18 14:47 Consult to Cardiology [CONS] Routine Comment: Consulting Provider: Cardiology Riya Reason for Consult: Afib with RVR refractory to Cardizem and BB Time Notified: 14:43 Call Completed: Yes 01/27/18 12:54 Consult to Nephrology [CONS] Routine Consulting Provider: Kidney Riya/JOSÉ LUIS/LIT/IRMA Reason for Consult: CKD and worsening kidney functions Call Completed: Yes 01/28/18 16:57 Consult to Physical Therapy [CONS] Routine Comment: Evaluate, develop and implement POC Reason for Consult: weakness, deconditioning, may require skilled PT/OT at discharge Does patient have active BEDREST order?: No Is patient medically & hemodynamically stable?: Yes Patient assessed for mobility or mobilized this visit?: Yes OT [Consult to Occupational Therapy] [CONS] Routine Comment: Evaluate, develop and implement POC Reason for Consult: weakness, deconditioning, may require skilled PT/OT at discharge Does patient have active BEDREST order?: No Is patient medically & hemodynamically stable?: Yes Patient assessed for mobility or mobilized this visit?: Yes Discharging clinician: Sonido Motta Constitutional Vitals: Temp Pulse Resp BP Pulse Ox 97.5 F L 88 15 110/80 92 01/31/18 07:24 01/31/18 07:24 01/31/18 07:24 01/31/18 07:24 01/31/18 07:24 General appearance: Present: A&O X 3, pleasant, no acute distress Exam: Head: Normocephalic, atraumatic Eyes: PERRL, EOMI, conjunctiva pink, sclera anicteric Neck: Supple, trachea midline, no lymphadenopathy Lungs: Persistent fine crackles appreciated in lower lobes bilaterally. Upper lobes clear. Nonlabored breathing. No wheezes or rhonchi noted. Cardiac: Irregularly irregular. No murmurs, clicks, or rubs noted. GI: Abdomen soft, nontender. Distended. Normoactive bowel sounds Extremities: Warm, radial pulses palpable and symmetrical. +1 pitting edema in bilateral LEs. No cyanosis or calf tenderness. Neuro: Alert and oriented 3. No focal deficits. Normal speech. Skin: Warm, dry, and intact. Contusion noted on right scapula (old). - Patient Status Disposition: Transfer SNF Condition: Fair Functional capacity at discharge: uses cane/walker Overall status at discharge: patient is progressing back to baseline - Discharge Instructions Follow Up With: NONE,PCP [Primary Care Provider] - - Diet and Activity Activity: ambulate only with your walker, as per the cardiac rehab, increase activity as tolerated, resume usual activities as tolerated, wear oxygen at all times Diet: low fat, low cholesterol, low salt diet <Ortiz Bee - Last Filed: 02/01/18 18:18> Date of Encounter: 02/01/18 - Discharge Diagnosis (1) Atrial fibrillation with RVR Status: Acute (2) Acute exacerbation of congestive heart failure Status: Acute Qualifiers: Heart failure type: diastolic Qualified Code(s): I50.33 - Acute on chronic diastolic (congestive) heart failure (3) CKD (chronic kidney disease) stage 4, GFR 15-29 ml/min Status: Acute (4) Anemia Status: Acute Qualifiers: Anemia type: due to chronic kidney disease Chronic kidney disease stage: stage 4 (severe) Qualified Code(s): N18.4 - Chronic kidney disease, stage 4 ( severe); D63.1 - Anemia in chronic kidney disease (5) Elevated troponin Status: Resolved Hospital course: Ms. Wiley is a 87 year old female - Time Spent with Patient Total time spent providing and/or coordinating discharge services: Date of admission: 01/24/18 10:47 Primary care physician: PCP NONE Consults: 01/24/18 14:47 Consult to Cardiology [CONS] Routine Comment: Consulting Provider: Cardiology Riya Reason for Consult: Afib with RVR refractory to Cardizem and BB Time Notified: 14:43 Call Completed: Yes 01/27/18 12:54 Consult to Nephrology [CONS] Routine Consulting Provider: Kidney Riya/JOSÉ LUIS/LIT/IRMA Reason for Consult: CKD and worsening kidney functions Call Completed: Yes 01/28/18 16:57 Consult to Physical Therapy [CONS] Routine Comment: Evaluate, develop and implement POC Reason for Consult: weakness, deconditioning, may require skilled PT/OT at discharge Does patient have active BEDREST order?: No Is patient medically & hemodynamically stable?: Yes Patient assessed for mobility or mobilized this visit?: Yes OT [Consult to Occupational Therapy] [CONS] Routine Comment: Evaluate, develop and implement POC Reason for Consult: weakness, deconditioning, may require skilled PT/OT at discharge Does patient have active BEDREST order?: No Is patient medically & hemodynamically stable?: Yes Patient assessed for mobility or mobilized this visit?: Yes - Constitutional Vitals: Temp Pulse Resp BP Pulse Ox 97.9 F 99 16 110/89 100 02/01/18 11:21 02/01/18 11:21 02/01/18 11:21 02/01/18 11:21 02/01/18 11:21 - Attending Attestation I examined this patient and my medical decision-making was reviewed with the Resident Physician Dr. Penaloza. I agree with the documented findings, disposition and treatment plan as described except to the extent set forth below. Ms. Wiley is a 87 year old female with a relevant past medical history of CHF , atrial fibrillation, CKD, anxiety, depression who presented to [facility] with complaints of increased shortness of breath. Patient states was diagnosed with CHF and a.fib in November at outside facility. Pt was started on Amiodarone and Cardizem PO. Her HR well controlled now. Pt denied any CP / SOB. Feels like she is back to baseline Gen: A. A. O x 3 Chest: Diminished BS b/l, Heart: S1S2+ Irregular rate and rythm a/p 1. Acute on chronic diastolic CHF exacerbation 2. Acute on chronic hypoxic resp failure Switched to PO Lasix cont close monitoring 3. Afib with RVR rate controlled now with Amiodarone and Cardizem on Eliquis for anti coag 4. BOOM with CKD-3 improving Medically stable to d/c ECF as per PT / OT recommendations
[2018-01-31] MEDS ORDERED: Furosemide 40 MG/4 ML VIAL IVP ONE (10:00)
--- NOTE | 2018-01-31 10:04 | Nephrology Progress Note ---
Date of Encounter: 01/31/18 Time of Encounter: 10:01 - Assessment and Plan (1) BOOM (acute kidney injury) Current Visit: Yes Status: Acute Scr 2.14 GFR 22, both improved. Continue to avoid nephrotoxins and renal dose all medications. Recommend F/U with home fitness plan coordinator with D/C. May d/c from a renal standpoint. (2) CKD (chronic kidney disease) stage 4, GFR 15-29 ml/min Current Visit: Yes Status: Acute Scr 2.0 at baseline, 2.14 today. (3) Congestive heart failure Current Visit: Yes Status: Acute Agree with 40 mg IV lasix today if indicated from primary team. Would also recommend a trial of 40 mg PO Lasix before d/c home to make sure its effective. Qualifiers: Heart failure type: diastolic Heart failure chronicity: chronic Qualified Code(s): I50.32 - Chronic diastolic (congestive) heart failure (4) Hyperkalemia Current Visit: Yes Status: Acute K 3.8 today. Low potassium diet ordered. Subjective Principal diagnosis: CHF, a.fib RVR Interval history: Pt seen and examined. NAD, sitting up in chair. Objective - Vital Signs Vital signs: Vital Signs Temp Pulse Resp BP Pulse Ox 01/31/18 07:24 97.5 F L 88 15 110/80 92 01/31/18 05:29 97.5 F L 103 20 121/89 93 01/30/18 21:30 97.6 F 88 18 110/75 95 01/30/18 17:04 100 01/30/18 15:53 97.7 F 109 18 108/76 99 01/30/18 11:05 97.5 F L 98 18 102/74 100 Intake and Output 01/30/18 01/31/18 01/31/18 23:59 07:59 15:59 Intake Total 200 / 200 250 / 250 360 / 360 Output Total 900 / 900 1300 / 1300 Balance -700 / -700 -1050 / -1050 360 / 360 Intake: Oral 200 / 200 250 / 250 360 / 360 Output: Urine 900 / 900 1300 / 1300 Other: Meal Dinner Breakfast Percent of Meal Consumed 100% 100% Stool Size Small Stool Consistency formed Stool Color Brown # Voids 0 1 Weight 93.8 kg Patient Weight 01/31/18 23:59 Weight 93.8 kg - General Appearance General appearance: Present: well-developed, well-nourished EENT: Present: ATNC, hearing intact, vision intact Neck: Present: supple Respiratory: Present: clear Cardiology: Present: edema (+2 pitting edema noted bilat lower extremities.), normal S1, normal S2 Gastrointestinal: Present: normoactive bowel sounds, no tenderness, no guarding Integumentary: Present: no rash, warm and dry Neurologic: Present: alert and oriented x3 Psychiatric: Present: mood/affect appropriate, cooperative - Lab 01/31/18 05:02 01/31/18 05:02 Most recent lab results Calcium 9.0 mg/dL (8.6-10.3) 01/31/18 05:02 Urine Creatinine 127 mg/dL 01/27/18 19:31 Urine Sodium < 10.0 mEq/L 01/27/18 19:31 Consult Discharge Plan - Plan Referrals: NONE,PCP [Primary Care Provider] - Prescriptions: Amiodarone [Cordarone] 200 mg PO BID 28 Days #56 tablet Diltiazem HCl [Diltiazem 24Hr Cd] 240 mg PO DAILY #28 cap.er.24h
[2018-01-31] MEDS: FLUoxetine 20 MG CAPSULE PO SCH ×2 (10:12→21:29)
[2018-01-31] MEDS: Multivit/Ca/Min/Fe/FA 1 TAB TABLET PO SCH (10:12)
[2018-01-31] MEDS: *HR* Amiodarone 200 MG TABLET PO SCH ×2 (10:12→21:28)
[2018-01-31] MEDS: Apixaban 5 MG TABLET PO SCH ×2 (10:12→21:28)
[2018-01-31] MEDS: Iron Polysaccharide Complex 150 MG CAPSULE PO SCH (10:12)
[2018-01-31] MEDS ORDERED: Ondansetron 4 MG/2 ML VIAL IVP PRN (13:04)
--- NOTE | 2018-01-31 16:45 | Internal Med Progress Note ---
<Sonido Penaloza - Last Filed: 01/31/18 18:58> Date of Encounter: 01/31/18 Time of Encounter: 08:45 - Assessment and plan (1) Atrial fibrillation with RVR Current Visit: Yes Status: Acute Assessment and plan: Appreciate cardio consultation Per cardio recs: Amiodarone 200mg BID and Cardizem ER 240. Currently rate controlled at 77-90 (2) Acute exacerbation of congestive heart failure Current Visit: Yes Status: Acute Assessment and plan: SOB imroved Strict I&Os Fluid status: -458.2mL today 40mg Lasix BID po Qualifiers: Heart failure type: diastolic Qualified Code(s): I50.33 - Acute on chronic diastolic (congestive) heart failure (3) CKD (chronic kidney disease) stage 4, GFR 15-29 ml/min Current Visit: Yes Status: Acute Assessment and plan: Kidney functions improved at Cr 2.14 today Records from [place] from 12/24 and 12/25 revealed Creatinine 2.0 and 1.9, which may be closer to pt baseline 40mg Lasix BID po (4) DVT prophylaxis Current Visit: Yes Status: Acute Assessment and plan: on eliquis (5) Anemia Current Visit: Yes Status: Acute Assessment and plan: Iron studies revealed low iron levels, but normal transferrin. Likely due to CKD Qualifiers: Anemia type: due to chronic kidney disease Chronic kidney disease stage: stage 4 (severe) Qualified Code(s): N18.4 - Chronic kidney disease, stage 4 ( severe); D63.1 - Anemia in chronic kidney disease (6) Atrial fibrillation Current Visit: Yes Status: Chronic Assessment and plan: As above Qualifiers: Atrial fibrillation type: chronic Qualified Code(s): I48.2 - Chronic atrial fibrillation - Time Spent With Patient Total time spent is greater than 50% in coordination of care (as documented) at patient's floor/unit and/or counseling patient: - Subjective Interval history: Ms. Wiley is an 87-year-old female, with a history of atrial fibrillation, CHF and CKD, who was admitted for shortness of breath and dyspnea. 01/24: During this encounter the patient was laying in bed in minor distress. Still complaining of shortness of breath, but stated it has improved slightly. Patient also states she still feels very "swollen" and warm. The patient is noted to be afebrile at this time. Patient complains of some chest tightness, but denies any chest pain. Also denies any abdominal pain, nausea, vomiting, or diarrhea. 01/25: Pt had an episode of SOB last night, but [facility] Pt sitting comfortably on the side of bed this AM eating breakfast. States she feels much better today compared to yesterday, and the chest tightness has improved, with no difficulty breathing. Denies any chest pain, abdominal pain, nausea, vomiting, or diarrhea. 01/26: No acute events overnight. Pt sitting comfortably in bed with no new complaints. Pt states she only feels SOB when she lays flat or if she gets up to walk. Able to speak in full sentences. Denies any chest pain, abdominal pain , nausea, vomiting, or diarrhea. 01/27: No acute events overnight. Pt sitting in bed eating breakfast. States she feels "ok". Only SOB when laying flat. Able to speak in full sentences. Denies any chest pain, abdominal pain, nausea, vomiting, diarrhea, or headache. 01/29: No acute events overnight. Pt sitting in bed comfortably. States she feels weak. Admits her SOB is somewhat worsened from the past couple days. Speaks in 5 -6 word groups. Gottlieb catheter removed yesterday. Denies any chest pain, abdominal pain, nausea, vomiting, diarrhea, dysuria, or headache. 01/30: No acute events overnight. Pt sitting comfortably in chair. States she feels "pretty good". States her SOB has improved while at rest, laying in bed, and while ambulating to the toilet. States her LE edema has improved bilaterally. Able to speak in full sentences and eat entire breakfast. Still feels weak. Admits to some abdominal tightness. Denies chest pain, abdominal pain, nausea, vomiting, diarrhea, dysuria, headache, numbness, or tingling. 01/31: No acute events overnight. Pt sitting comfortably in chair conversing with family members. States she feels "much better". SOB and LE edema stable from yesterday. States she still feels weak. Denies any chest pain, abdominal pain, nausea, vomiting, diarrhea, dysuria, headache, numbness, or tingling. - Constitutional Vitals: Temp Pulse Resp BP Pulse Ox 97.6 F 104 16 130/98 100 01/31/18 16:05 01/31/18 16:05 01/31/18 16:05 01/31/18 16:05 01/31/18 16:05 General appearance: Present: A&O X 3, pleasant, no acute distress Exam: Head: Normocephalic, atraumatic Eyes: PERRL, EOMI, conjunctiva pink, sclera anicteric Neck: Supple, trachea midline, no lymphadenopathy Lungs: Persistent fine crackles appreciated in lower lobes bilaterally. Upper lobes clear. Nonlabored breathing. No wheezes or rhonchi noted. Cardiac: Irregularly irregular. No murmurs, clicks, or rubs noted. GI: Abdomen soft, nontender. Distended. Normoactive bowel sounds Extremities: Warm, radial pulses palpable and symmetrical. +1 pitting edema in bilateral LEs. No cyanosis or calf tenderness. Neuro: Alert and oriented 3. No focal deficits. Normal speech. Skin: Warm, dry, and intact. Contusion noted on right scapula (old). Internal Medicine: Result - Labs CBC & Chem 7: 01/31/18 05:02 01/31/18 05:02 Labs: Short CBC 01/31/18 Range/Units 05:02 WBC 8.3 (4.3-11.1) K/mcL Hgb 7.7 L (11.5-15.4) g/dL Hct 25.3 L (35.3-44.9) % Plt Count 376 (140-400) K/mcL Neutrophils # 6.6 (1.6-8.9) K/mcL BMP 01/31/18 05:02 Sodium 139 Potassium 3.8 Chloride 103 Carbon Dioxide 24 BUN 69 H Creatinine 2.14 H Glucose 129 H Calcium 9.0 - ABG Interpretation ABG results: PT/INR, D-dimer PT 23.3 Seconds (9.4-12.1) H 01/23/18 23:24 Consult Discharge Plan - Plan Referrals: NONE,PCP [Primary Care Provider] - Prescriptions: Amiodarone [Cordarone] 200 mg PO BID 28 Days #56 tablet Diltiazem HCl [Diltiazem 24Hr Cd] 240 mg PO DAILY #28 cap.er.24h <Ortiz Bee - Last Filed: 02/01/18 07:51> Date of Encounter: 01/31/18 - Assessment and plan (1) Atrial fibrillation with RVR Current Visit: Yes Status: Acute (2) Acute exacerbation of congestive heart failure Current Visit: Yes Status: Acute Qualifiers: Heart failure type: diastolic Qualified Code(s): I50.33 - Acute on chronic diastolic (congestive) heart failure (3) DVT prophylaxis Current Visit: Yes Status: Acute (4) CKD (chronic kidney disease) stage 4, GFR 15-29 ml/min Current Visit: Yes Status: Acute (5) Anemia Current Visit: Yes Status: Acute Qualifiers: Anemia type: due to chronic kidney disease Chronic kidney disease stage: stage 4 (severe) Qualified Code(s): N18.4 - Chronic kidney disease, stage 4 ( severe); D63.1 - Anemia in chronic kidney disease (6) Elevated troponin Current Visit: Yes Status: Resolved (7) Atrial fibrillation Current Visit: Yes Status: Chronic Qualifiers: Atrial fibrillation type: chronic Qualified Code(s): I48.2 - Chronic atrial fibrillation - Time Spent With Patient Total time spent is greater than 50% in coordination of care (as documented) at patient's floor/unit and/or counseling patient: - Constitutional Vitals: Temp Pulse Resp BP Pulse Ox 97.6 F 104 16 130/98 100 01/31/18 16:05 01/31/18 16:05 01/31/18 16:05 01/31/18 16:05 01/31/18 16:05 Internal Medicine: Result - Labs CBC & Chem 7: 01/31/18 05:02 02/01/18 04:07 Labs: Short CBC 01/31/18 Range/Units 05:02 WBC 8.3 (4.3-11.1) K/mcL Hgb 7.7 L (11.5-15.4) g/dL Hct 25.3 L (35.3-44.9) % Plt Count 376 (140-400) K/mcL Neutrophils # 6.6 (1.6-8.9) K/mcL BMP 01/31/18 05:02 Sodium 139 Potassium 3.8 Chloride 103 Carbon Dioxide 24 BUN 69 H Creatinine 2.14 H Glucose 129 H Calcium 9.0 - ABG Interpretation ABG results: PT/INR, D-dimer PT 23.3 Seconds (9.4-12.1) H 01/23/18 23:24 - Attending Attestation I examined this patient and my medical decision-making was reviewed with the Resident Physician Dr. Penaloza. I agree with the documented findings, disposition and treatment plan as described except to the extent set forth below. Ms. Wiley is a 87 year old female with a relevant past medical history of CHF , atrial fibrillation, CKD, anxiety, depression who presented to [facility] with complaints of increased shortness of breath. Patient states was diagnosed with CHF and a.fib in November at outside facility. Pt was started on Amiodarone and Cardizem PO. Her HR well controlled now. Pt denied any CP / SOB. Feels like she back to baseline Gen: A. A. O x 3 Chest: Diminished BS b/l, Heart: S1S2+ Irregular rate and rythm a/p 1. Acute on chronic diastolic CHF exacerbation 2. Acute on chronic hypoxic resp failure Switched to PO Lasix cont close monitoring 3. Afib with RVR rate controlled now with Amiodarone and Cardizem on Eliquis for anti coag 4. BOOM with CKD-3 improving Medically stable to d/c ECF as per PT / OT recommendations waiting on insurance prior auth
[2018-01-31] MEDS: Gabapentin 100 MG CAPSULE PO SCH (21:29)
[2018-01-31] MEDS: *HR* LORazepam 1 MG TABLET PO SCH (21:29)
[2018-02-01] MEDS: Diltiazem CD (24hr) 240 MG CAPSULE PO SCH ×2 (00:28→08:09)
[2018-02-01 05:01] LABS: Potassium 3.6 mEq/L (3.5-5.1)
[2018-02-01 05:25] LABS: Folate 14.4 ng/mL (3.0-16.0)
[2018-02-01 05:26] LABS: Vitamin B12 > 1500 pg/mL (250-1100)
[2018-02-01] MEDS ORDERED: Furosemide 40 MG TABLET PO SCH (05:30)
[2018-02-01] MEDS: Iron Polysaccharide Complex 150 MG CAPSULE PO SCH (08:08)
[2018-02-01] MEDS: Apixaban 5 MG TABLET PO SCH (08:08)
[2018-02-01] MEDS: Multivit/Ca/Min/Fe/FA 1 TAB TABLET PO SCH (08:08)
[2018-02-01] MEDS: FLUoxetine 20 MG CAPSULE PO SCH (08:09)
[2018-02-01] MEDS: *HR* Amiodarone 200 MG TABLET PO SCH (08:09)
--- NOTE | 2018-02-01 10:25 | Nephrology Progress Note ---
Date of Encounter: 02/01/18 Time of Encounter: 10:21 - Assessment and Plan (1) BOOM (acute kidney injury) Current Visit: Yes Status: Acute Resolved. (2) CKD (chronic kidney disease) stage 4, GFR 15-29 ml/min Current Visit: Yes Status: Acute Scr 2.0 at baseline, 1.99 today. Will f/u with plastic manager in [place] in 4-6 weeks. (3) Congestive heart failure Current Visit: Yes Status: Acute Would also recommend 40 Lasix PO by mouth BID upon d/c. Qualifiers: Heart failure type: diastolic Heart failure chronicity: chronic Qualified Code(s): I50.32 - Chronic diastolic (congestive) heart failure (4) Hyperkalemia Current Visit: Yes Status: Acute K 3.6 today, seems resolved. Low potassium diet ordered. Subjective Principal diagnosis: CHF, a.fib RVR Interval history: Pt seen and examined. NAD, sitting up in chair. Objective - Vital Signs Vital signs: Vital Signs Temp Pulse Resp BP Pulse Ox 02/01/18 06:51 97.6 F 87 20 113/79 96 02/01/18 04:51 97.6 F 101 20 106/89 94 01/31/18 21:00 97.6 F 101 18 110/89 97 01/31/18 16:05 97.6 F 104 16 130/98 100 01/31/18 11:41 97.7 F 90 15 110/73 100 Intake and Output 01/31/18 02/01/18 02/01/18 23:59 07:59 15:59 Intake Total 420 / 420 0 / 0 240 / 240 Output Total 550 / 550 0 / 0 Balance -130 / -130 0 / 0 240 / 240 Intake: Oral 420 / 420 0 / 0 240 / 240 Output: Urine 550 / 550 0 / 0 Other: Meal Dinner Breakfast Percent of Meal Consumed 10% 50% Stool Size Large Stool Consistency soft formed Stool Color Brown # Voids 0 1 Weight 92.5 kg Patient Weight 02/01/18 23:59 Weight 92.5 kg - General Appearance General appearance: Present: well-developed, well-nourished EENT: Present: ATNC, hearing intact, vision intact Neck: Present: supple Respiratory: Present: clear Cardiology: Present: edema (+2 pitting edema noted to bilateral lower extremities.), normal S1, normal S2 Gastrointestinal: Present: normoactive bowel sounds, no tenderness, no guarding Integumentary: Present: no rash, warm and dry Neurologic: Present: alert and oriented x3 Psychiatric: Present: mood/affect appropriate, cooperative - Lab 01/31/18 05:02 02/01/18 04:07 Most recent lab results Calcium 9.0 mg/dL (8.6-10.3) 02/01/18 04:07 Urine Creatinine 127 mg/dL 01/27/18 19:31 Urine Sodium < 10.0 mEq/L 01/27/18 19:31 Consult Discharge Plan - Plan Referrals: NONE,PCP [Primary Care Provider] - Prescriptions: Amiodarone [Cordarone] 200 mg PO BID 28 Days #56 tablet Diltiazem HCl [Diltiazem 24Hr Cd] 240 mg PO DAILY #28 cap.er.24h
[2018-02-01 11:24] VITALS: BP 110/89
--- NOTE | 2018-02-01 12:59 | Physician Discharge Referral ---
ExtendedCare Referral Info Transfer To: [facility] Provider in Charge: Dr. Bee Provider in Charge after Transfer: PCP Institutional Level of Care: Skilled - Diagnosis (1) Atrial fibrillation with RVR Priority: Secondary Status: Acute (2) Acute exacerbation of congestive heart failure Priority: Primary Status: Acute (3) CKD (chronic kidney disease) stage 4, GFR 15-29 ml/min Priority: Secondary Status: Acute (4) Anemia Priority: Secondary Status: Acute (5) Elevated troponin Priority: Secondary Status: Resolved Prognosis: Fair Aware of Diagnosis: Patient, Family Aware of Prognosis: Patient, Family - Transfer Medications Prescriptions: Amiodarone [Cordarone] 200 mg PO BID 28 Days #56 tablet Diltiazem HCl [Diltiazem 24Hr Cd] 240 mg PO DAILY #28 cap.er.24h Home Medications: Apixaban [Eliquis] 5 mg PO BID 01/24/18 [History] FLUoxetine HCl [Sarafem] 20 mg PO BID 01/24/18 [History] Furosemide [Lasix] 40 mg PO DAILY 01/24/18 [History] Gabapentin [Neurontin] 300 mg PO HS 01/24/18 [History] Iron Polysaccharide Complex [Ferric X-150] 150 mg PO DAILY 01/24/18 [History] Multivit-Min/FA/Lycopen/Lutein [Centrum Silver Tablet] 1 each PO DAILY 01/24/18 [History] Pantoprazole Sodium [Protonix] 40 mg PO DAILY 01/24/18 [History] Potassium Chloride [Klor-Con Sprinkle] 20 meq PO BID 01/24/18 [History] Spironolactone [Aldactone] 12.5 mg PO DAILY 01/24/18 [History] LORazepam [Ativan] 1 mg PO HS 01/25/18 [History] Nitroglycerin 0.2 mg TD DAILY 01/25/18 [History] Amiodarone [Cordarone] 200 mg PO BID 28 Days #56 tablet 01/31/18 [Rx] Diltiazem HCl [Diltiazem 24Hr Cd] 240 mg PO DAILY #28 cap.er.24h 01/31/18 [Rx] Allergies/Adverse Reactions: 3 Allergy/AdvReac Type Severity Reaction Status Date / Time No Known Allergies Allergy Verified 01/25/18 08:26 - Respiratory Orders Oxygen / L per min (3) Smoking Cessation: Smoking cessation has been advised. For more information, call the [place] Tobacco Quit Line at 2-997-UISZ-NOW. - Lab Orders Lab Orders: Other (include drug levels w/frequency) (BMP in 1 week) - Ancillary Orders May use pressure relief devices daily prn - Advance Directives Code Status: Full Code - Mobility Orders Ambulate - Rehabiliation Orders Rehab Potential: Fair Rehab Orders: ROM Exercises, Evaluation for Physical Therapy, Evaluation for Occupational Therapy - Treatments Skin tear care topically daily PRN per policy - Diet Orders No Added Salt (ENRIQUE), Renal, Cardiac CERTIFICATION: I certify that the transfer of the above named patient to an Extended Care Facility is necessary for the continuing treatment of the diagnosis listed. The above information is true and accurate reflection of patient's current condition. Confidential - Redisclosure prohibited without a patient's written consent.
== END 2018-02-01 15:30 | DRG 291 ==
LOC: 2NENU 22:42 → EMEROO 22:42 → SUATTDRO 01-24 02:37 → 2NENU 01-24 03:25
PROVIDERS: ADMIT Internal Medicine; ATTEND Internal Medicine